=== PATIENT | female | born 1950 | race Caucasian/White ===

== ENCOUNTER 2016-12-26 16:52 | Emergency (ER) | payer MEDICARE, OTHER ==
[2016-12-26 17:57] VITALS: BP 106/62
--- NOTE | 2016-12-26 18:02 | ERPHSYRPT ---
- History of Present Illness Time Seen by Provider: 12/26/16 17:46 Source: patient, family Patient Subjective Stated Complaint: rt foot wound Triage Nursing Assessment: rt foot wound for several weeks. c and supa takes care of pt--pt was in radiology and then over to er. pt states she has neuropathy and unaware if she has stepped on anything. puncture wound/tunneling ulcer type area with no redness to pad of rt foot. clear yellow drainage noted. 2-3+ edema noted to rt lower leg. 1-2+ edema to lt lower leg. pt states she had a callus removed last week from the area in question. pain with ambulation. Physician History: CC: right foot pain Hx: 66 y/o patient of Dr Jones. She has hx of renal failure and DM. She went to the nails salon and had a callous removed from the right foot. She had a sore so went to Dr Jones last Wed. She had order for OP xray which she obtained today. It showed fractures so she was brought to the ER. She has pain in the foot with walking. She has been using her 's vicodin. No fracture , redness, or drng. No injury. Lower Extremities Pain: foot: right Allergies/Adverse Reactions: ceftriaxone sodium [From Rocephin] Allergy (Severe, Verified 12/26/16 17:48) Difficulty Swallowing chlorpheniramine polistirex [From Tussionex] Allergy (Mild, Verified 12/26/16 17 :48) Lightheadedness hydrocodone polistirex [From Tussionex] Allergy (Mild, Verified 12/26/16 17:48) Lightheadedness Cephalosporins Allergy (Unverified 12/26/16 17:48) chlorpheniramine Allergy (Verified 12/26/16 17:48) morphine Adverse Reaction (Intermediate, Verified 12/26/16 17:48) Home Medications: Bumetanide 4 mg PO UD 08/03/15 [History] Cinacalcet HCl [Sensipar] 30 mg PO DAILY 08/03/15 [History] Citalopram Hydrobromide [Celexa] 20 mg PO DAILY 08/03/15 [History] Insulin Glargine,Hum.rec.anlog [Gurpreet Vidal] 32 unit SQ HS 08/03/15 [History ] Insulin Lispro [Humalog Kwikpen] 10 unit SQ TID 08/03/15 [History] Ipratropium/Albuterol Sulfate [Iprat-Albut 0.5-3(2.5) mg/3 ml] 0 ml IH QID 08/03 [History] Lamotrigine 100 mg PO BID 08/03/15 [History] Methylphenidate HCl 10 mg PO QID 08/03/15 [History] Midodrine HCl 5 mg PO UD 08/03/15 [History] PANTOPRAZOLE 40 mg Tablet [Protonix 40MG Tablet] 40 mg PO DAILY 08/03/15 [ History] Pregabalin [Lyrica] 75 mg PO UD 08/03/15 [History] Promethazine HCl 25 mg PO DAILY PRN PRN 08/03/15 [History] Ranolazine 500 MG [Ranexa 500 MG] 500 mg PO BID 08/03/15 [History] Ropinirole HCl 1 mg PO HS 08/03/15 [History] Simvastatin 5 mg PO HS 08/03/15 [History] Zolpidem Tartrate [Ambien] 10 mg PO HS 08/03/15 [History] Aspirin 325 mg PO DAILY 09/19/15 [History] Ergocalciferol (Vitamin D2) [Vitamin D2] 50,000 unit PO Q7D 09/19/15 [History] Ferrous Sulfate 325 mg [Feosol 325 mg] 325 mg PO BID 09/19/15 [History] Glyburide 2.5 mg PO DAILY 09/19/15 [History] Hydrocodone Bit/Acetaminophen [[place] 5-325 Tablet] 1 each PO Q4HPRN PRN [History] [place]-3 Fatty Acids/Fish Oil [Fish Oil 1,000 mg Softgel] 1 each PO BID 09/19/15 [History] Sevelamer Carbonate [Renvela] 3,200 mg PO QID 09/19/15 [History] Hx Tetanus, Diphtheria Vaccination/Date Given: Yes Hx Influenza Vaccination/Date Given: Yes Hx Pneumococcal Vaccination/Date Given: Yes Immunizations Up to Date: Yes - Review of Systems Constitutional: No Fever, No Chills Musculoskeletal: Joint Pain (right foot), No Back Pain Skin: Skin Lesions (right plantar), No Cellulitis - Past Medical History Pertinent Past Medical History: Yes Neurological History: No Pertinent History ENT History: No Pertinent History Cardiac History: Myocardial Infarction ([place]) Respiratory History: CHF, COPD Endocrine Medical History: Diabetes Type II Musculoskeletal History: No Pertinent History GI Medical History: Other History: Dialysis, Renal Disease, Other Psycho-Social History: No Pertinent History Female Reproductive Disorders: No Pertinent History Other Medical History: COLOSTOMY, RENAL FAILURE,POLCYSTIC KIDNEY. blood transfusions. dialysis m,w,f - Past Surgical History Past Surgical History: Yes Neuro Surgical History: No Pertinent History Cardiac: Other Respiratory: No Pertinent History Gastrointestinal: Cholecystectomy, Other Musculoskeletal: No Pertinent History Female Surgical History: Hysterectomy Other Surgical History: COLOSTOMY,FISTULA - Social History Smoking Status: Never smoker How long have you smoked: 6 YEARS Exposure to second hand smoke: Yes Drug Use: none Patient Lives Alone: No - Female History Hx Now: No - Nursing Vital Signs Nursing Vital Signs: Initial Vital Signs Temperature 98.2 F Temperature Source Oral Pulse Rate 74 Respiratory Rate 16 Blood Pressure [] 106/62 Pain Intensity 0 - Physical Exam General Appearance: alert Eyes, Ears, Nose, Throat Exam: moist mucous membranes Neck Exam: supple Cardiovascular/Respiratory Exam: normal breath sounds, regular rate/rhythm Mental Status Exam: alert, oriented x 3, cooperative Skin Exam: warm, dry SpO2 Interpretation: normal SpO2: 100 Oxygen Delivery: Nasal Cannula Comments: right foot has neuropathic ulcer plantar 4-5 MT head area. Mild swelling. No redness. No drng. - Radiology Exams right foot X-ray Interpretation: Interpreted by me (3,4,5 partially displaced metatarsal fractures) Ordered Tests: Active Orders 24 hr Category Date Time Status Yoni Bandage Application -[facility] STAT Care 12/26/16 18:15 Active FOOT (MINIMUM 3 VIEWS) Routine Exams 12/26/16 Taken - Progress Progress Note: 12/26/16 18:[address] Jones. Will use bulky dressing, yoni wrap, and her own post op shoe. She has a walker. Will Rx norco for patient for pain. Counseled pt/family regarding: diagnosis, need for follow-up, rad results - Departure Time of Disposition: 18:16 Departure Disposition: Home Clinical Impression: right 3,45 metatarsal fractures Neuropathic foot ulcer Qualifiers: Laterality: right Non-pressure ulcer stage: limited to breakdown of skin Qualified Code(s): L97.511 - Non-pressure chronic ulcer of other part of right foot limited to breakdown of skin Condition: Stable Critical Care Time: No Referrals: WASHINGTON TRAYLOR [Primary Care Provider] - JO-ANN JONES [PODIATRY STAFF] - Instructions: Foot Fracture Additional Instructions: Elevate No weight bearing- use walker Use gauze dressing, yoni wrap, post op shoe. Call in AM to follow up with Dr Jones next week. Prescriptions: Hydrocodone Bit/Acetaminophen [[place] 5-325 Tablet] 1 each PO Q6H PRN PRN #20 tablet PRN Reason: Pain
[2016-12-26 18:31] VITALS: PULSE 78; O2SAT 97
--- NOTE | 2016-12-27 08:54 | XRAY ---
Indication: Puncture wound, distal first metatarsal. Comparison: None 3 nonweightbearing views of the right foot demonstrates diffuse osteopenia with mildly displaced fractures involving the distal third-fifth metatarsals and nondisplaced fracture of the proximal second metatarsal. The second/third metatarsal fractures demonstrates healing. Tiny heel spurs. Mild diffuse soft tissue swelling and faint vascular calcifications. Impression: Second-fifth metatarsal fractures as detailed. Osteopenia and heel spurs. Comment: Patient was taken to the ER for further evaluation.
== END 2016-12-26 18:31 | disposition home or self-care (01) ==
LOC: ED 16:52 → RAD 16:52 → EDSTATUS 17:30 → ED 18:31
DX: L97.511 Non-pressure chronic ulcer of other part of right foot limited to breakdown of skin (principal); S92.331A Displaced fracture of third metatarsal bone, right foot, initial encounter for closed fracture; S92.341A Displaced fracture of fourth metatarsal bone, right foot, initial encounter for closed fracture; S92.351G Displaced fracture of fifth metatarsal bone, right foot, subsequent encounter for fracture with delayed healing
CPT/HCPCS: 73630; 99283

== ENCOUNTER 2017-01-17 13:08 | Emergency (ER) | payer MEDICARE, OTHER ==
[2017-01-17 13:20] VITALS: O2SAT 98
--- NOTE | 2017-01-17 13:29 | ERPHSYRPT ---
- History of Present Illness Time Seen by Provider: 01/17/17 13:18 Historian: patient, EMS Exam Limitations: no limitations Physician History: The patient is a 66-year-old female brought in by ambulance from home with her complaining of a brief period of shortness of breath and chest tightness. She had just returned from dialysis when the shortness of breath occurred. Shortness of breath was quickly followed by chest tightness without any pain in her chest or in the extremities. The ambulance gave her 4 baby aspirin and a nitroglycerin. The chest tightness completely resolved by the time she arrived to the ER. Her past medical history is significant for diabetes, neuropathy, end-stage renal disease, chronic anemia with routine blood transfusions, congestive heart failure, and colon surgery resulting in a colostomy. The patient states that her hemoglobin 2 days ago was 7. Her hemoglobin has been as low as 5.5 in the recent past. Timing/Duration: today, resolved prior to arrival Activities at Onset: rest Quality: tightness Location: central Chest Pain Radiation: no radiation Severity of Pain-Max: moderate Severity of Pain-Current: none Modifying Factors: Improves With: nitroglycerin, aspirin Associated Symptoms: denies symptoms Prior Chest Pain/Cardiac Workup: cardiac cath Nitro Today/Relief: 0.4 mg x 1, provided by EMS, complete relief Aspirin Treatment Today: 81 mg x 4, provided by EMS Allergies/Adverse Reactions: ceftriaxone sodium [From Rocephin] Allergy (Severe, Verified 01/17/17 13:20) Difficulty Swallowing chlorpheniramine polistirex [From Tussionex] Allergy (Mild, Verified 01/17/17 13 :20) Lightheadedness hydrocodone polistirex [From Tussionex] Allergy (Mild, Verified 01/17/17 13:20) Lightheadedness Cephalosporins Allergy (Unverified 01/17/17 13:20) chlorpheniramine Allergy (Verified 01/17/17 13:20) morphine Adverse Reaction (Intermediate, Verified 01/17/17 13:20) Home Medications: Cinacalcet HCl [Sensipar] 30 mg PO DAILY 08/03/15 [History] Citalopram Hydrobromide [Celexa] 20 mg PO DAILY 08/03/15 [History] Insulin Glargine,Hum.rec.anlog [Toujeo Solostar] 16 unit SQ HS 08/03/15 [History ] Insulin Lispro [Humalog Kwikpen] 7 unit SQ TID 08/03/15 [History] Ipratropium/Albuterol Sulfate [Iprat-Albut 0.5-3(2.5) mg/3 ml] 0 ml IH QID 08/03 [History] Lamotrigine 100 mg PO BID 08/03/15 [History] Methylphenidate HCl 10 mg PO DAILY 08/03/15 [History] Midodrine HCl 5 mg PO UD 08/03/15 [History] PANTOPRAZOLE 40 mg Tablet [Protonix 40MG Tablet] 40 mg PO DAILY 08/03/15 [ History] Promethazine HCl 25 mg PO DAILY PRN PRN 08/03/15 [History] Ranolazine 500 MG [Ranexa 500 MG] 500 mg PO BID 08/03/15 [History] Ropinirole HCl 1 mg PO HS 08/03/15 [History] Simvastatin 5 mg PO HS 08/03/15 [History] Zolpidem Tartrate [Ambien] 10 mg PO HS 08/03/15 [History] Aspirin 81 mg PO DAILY 09/19/15 [History] Ergocalciferol (Vitamin D2) [Vitamin D2] 50,000 unit PO Q7D 09/19/15 [History] Ferrous Sulfate 325 mg [Feosol 325 mg] 325 mg PO BID 09/19/15 [History] [place]-3 Fatty Acids/Fish Oil [Fish Oil 1,000 mg Softgel] 1 each PO BID 09/19/15 [History] Sevelamer Carbonate [Renvela] 3,200 mg PO QID 09/19/15 [History] Folic Acid 1 mg PO DAILY 01/17/17 [History] Gabapentin 300 mg PO HS 01/17/17 [History] Sucralfate 1 gm [Carafate 1 GM] 1 gm PO QID 01/17/17 [History] Hx Tetanus, Diphtheria Vaccination/Date Given: Yes Hx Influenza Vaccination/Date Given: Yes Hx Pneumococcal Vaccination/Date Given: Yes - Review of Systems Constitutional: No Fever, No Chills Eyes: No Symptoms Ears, Nose, & Throat: No Symptoms Respiratory: Dyspnea, Dyspnea on Exertion ([place]AK), No Cough Cardiac: Chest Pain (tightness) Abdominal/Gastrointestinal: No Abdominal Pain, No Nausea, No Vomiting, No Diarrhea Genitourinary Symptoms: No Dysuria Musculoskeletal: No Back Pain, No Neck Pain Skin: No Rash Neurological: No Dizziness, No Focal Weakness, No Sensory Changes Psychological: No Symptoms Endocrine: No Symptoms Hematologic/Lymphatic: No Symptoms Immunological/Allergic: No Symptoms All Other Systems: Reviewed and Negative - Past Medical History Pertinent Past Medical History: Yes Neurological History: No Pertinent History ENT History: No Pertinent History Cardiac History: Myocardial Infarction ([place]) Respiratory History: CHF, COPD Endocrine Medical History: Diabetes Type II Musculoskeletal History: No Pertinent History GI Medical History: Other History: Dialysis, Renal Disease, Other Psycho-Social History: No Pertinent History Female Reproductive Disorders: No Pertinent History Other Medical History: COLOSTOMY, RENAL FAILURE,POLCYSTIC KIDNEY. blood transfusions. dialysis m,w,f - Past Surgical History Past Surgical History: Yes Neuro Surgical History: No Pertinent History Cardiac: Other Respiratory: No Pertinent History Gastrointestinal: Cholecystectomy, Other Musculoskeletal: No Pertinent History Female Surgical History: Hysterectomy Other Surgical History: COLOSTOMY,FISTULA - Social History Smoking Status: Never smoker How long have you smoked: 6 YEARS Exposure to second hand smoke: Yes Drug Use: none Patient Lives Alone: No - Female History Hx Now: No - Nursing Vital Signs Nursing Vital Signs: Initial Vital Signs Temperature 98.2 F Temperature Source Oral Pulse Rate [] 90 Pulse Rate 84 Respiratory Rate 20 Blood Pressure [] 167/72 Pain Intensity 0 - Physical Exam General Appearance: no apparent distress, alert Eye Exam: PERRL/EOMI, eyes nml inspection Ears, Nose, Throat Exam: normal ENT inspection, moist mucous membranes Neck Exam: normal inspection, non-tender, supple, full range of motion Respiratory Exam: normal breath sounds, lungs clear, No respiratory distress Cardiovascular Exam: regular rate/rhythm, normal heart sounds Gastrointestinal/Abdomen Exam: soft, No tenderness, No mass Pelvic Exam: not done Rectal Exam: not done Back Exam: normal inspection, No CVA tenderness, No vertebral tenderness Extremity Exam: normal inspection, normal range of motion Neurologic Exam: alert, oriented x 3, cooperative, normal mood/affect, sensation nml, No motor deficits Skin Exam: normal color, warm, dry SpO2 Interpretation: normal - Course EKG Interpreted by Me: RATE, Sinus Rhythm, NORMAL AXIS, NORMAL INTERVALS, NORMAL QRS, NORMAL ST-T, Other (no change compared to EKG 12/04/15.) - Radiology Exams Chest X-ray Interpretation: Teleradiologist Report, Other (cardiomegaly, vascular prominence, pulmonary edema and tiny bilateral effusions per DR Hilario.) Ordered Tests: Active Orders 24 hr Category Date Time Status Inserting Machine Operator STAT Care 01/17/17 13:45 Active EKG-ER Only STAT Care 01/17/17 13:35 Active IV Insertion STAT Care 01/17/17 13:45 Active Oxygen-ED Only NASAL CANNULA 3 lpm Care 01/17/17 13:45 Active CHEST 2 VIEWS (PA AND LAT) Stat Exams 01/17/17 13:35 Completed CBC W DIFF Stat Lab 01/17/17 13:50 Completed CMP Stat Lab 01/17/17 13:50 Completed Manual Differential NC Stat Lab 01/17/17 13:50 Completed TROPONIN Stat Lab 01/17/17 13:50 Completed Medication Summary Discontinued Medications Generic Name Dose Route Start Last Admin Trade Name Earleq PRN Reason Stop Dose Admin Potassium Chloride 40 meq 01/17/17 14:31 01/17/17 14:49 Klor Con 10 Meq PO 01/17/17 14:32 40 meq STAT ONE Administration Potassium Chloride Confirm 01/17/17 14:49 Klor Con 10 Meq Administered 01/17/17 14:50 Dose 40 meq PO .STK-MED ONE Lab/Rad Data: Laboratory Result Diagrams 01/17/17 13:50 01/17/17 13:50 Laboratory Results 01/17/17 01/17/17 Range/Units 13:50 13:50 WBC 6.1 (4.0-10.5) K/mm3 RBC 2.29 L (4.1-5.4) M/mm3 Hgb 6.4 L* (12.0-16.0) gm/dl Hct 22.1 L (35-47) % MCV 96.5 (78-100) fl MCH 27.9 (26-32) pg MCHC 29.0 L (32-36) g/dl RDW 17.9 H (11.5-14.0) % Plt Count 144 L (150-450) K/mm3 MPV 12.2 H (6-9.5) fl Segmented Neutrophils 79 H (36.0-66.0) % Band Neutrophils 1 (0.0-2.0) % Lymphocytes (Manual) 6 L (24-44) % Monocytes (Manual) 11 (0.0-12.0) % Eosinophils (Manual) 1 (0.00-3.0) % Basophils (Manual) 1 (0.0-1.0) % Myelocytes 1 % Differential Comment ABNORMAL Platelet Estimate DECREASED (NORMAL) Polychromasia 1+ Hypochromasia 2+ Poikilocytosis 1+ Anisocytosis 2+ Macrocytosis 1+ Sodium 138 (136-145) mEq/L Potassium 3.0 L* (3.5-5.1) mEq/L Chloride 100 (98-107) mEq/L Carbon Dioxide 30.6 (21-32) mEq/L Anion Gap 10.9 (5-15) MEQ/L BUN 13 (9-20) mg/dL Creatinine 2.72 H (0.55-1.30) mg/dl Estimated GFR 18 ML/MIN Glucose 296 H (70-110) MG/DL Calcium 8.5 (8.5-10.1) mg/dL Total Bilirubin 0.30 (0.2-1.0) mg/dL AST 24 (15-37) U/L ALT 22 (12-78) U/L Alkaline Phosphatase 238 H (46-116) U/L Troponin I 0.028 (0.000-0.056) ng/ml Serum Total Protein 6.2 L (6.4-8.2) gm/dL Albumin 2.6 L (3.4-5.0) g/dL - Progress Progress: unchanged Air Movement: good Progress Note: 01/17/17 15:01 I spoke with her primary care doctor, Dr. Do, about the patient's hemoglobin level and her potassium level. He knows of her chronic anemia and recommended that she be given potassium and then sent home. He suggested that I contact her casting and curing operator, Dr. Burnette, about the patient. Her casting and curing operator takes care of arranging transfusions and should do so on Friday after she has dialysis. Dr. Burnette has been called the as if this time has not responded. 01/17/17 15:45 I spoke with doctor Burnette's PA, Estuardo, about the patient. The PA knows the patient well and agrees to see the patient on Friday after dialysis for possible transfusion for anemia. Blood Culture(s) Obtained: No Antibiotics given: No Counseled pt/family regarding: lab results, diagnosis, need for follow-up - Departure Time of Disposition: 15:48 Departure Disposition: Home Clinical Impression: Anemia, Hypokalemia Condition: Stable Critical Care Time: No Additional Instructions: You have anemia. I spoke with your casting and curing operator's PA who will see you Friday after dialysis and evaluate you for a likely blood transfusion for anemia.You also had low potassium and was given 40 mEq of potassium in the ER.
[2017-01-17 13:54] LABS: Mean Cell Volume 96.5 fl (78-100); Mean Corpuscular Hemoglobin 27.9 pg (26-32); Mean Platelet Volume 12.2 fl (6-9.5); Platelet Count 144 K/mm3 (150-450); Red Blood Count 2.29 M/mm3 (4.1-5.4); Red Cell Distribution Width 17.9 % (11.5-14.0); White Blood Count 6.1 K/mm3 (4.0-10.5)
[2017-01-17 14:07] LABS: BAND 1 % (0.0-2.0); Basophil 1 % (0.0-1.0); Eosinophil 1 % (0.00-3.0); Myelocyte 1 %; Total Cells Counted 100
[2017-01-17 14:09] LABS: ANISOCYTOSIS 2+; Hypochromia 2+; Platelet Estimate DECREASED (NORMAL); Polychromasia 1+
[2017-01-17 14:10] LABS: Macrocytosis 1+; Poikilocytosis 1+
--- NOTE | 2017-01-17 14:12 | XRAY ---
Indication: Short of breath. Chest tightness. Comparison: September 19, 2015. AP/lateral chest slightly underinflated again with cardiomegaly, vascular prominence, pulmonary edema, and tiny bibasilar effusions favoring cardiac decompensation. Superimposed pneumonia not completely excluded. New right Port-A-Cath without complications.
[2017-01-17 14:24] LABS: ALBUMIN 2.6 g/dL (3.4-5.0); ANION GAP 10.9 MEQ/L (5-15); BILIRUBIN,TOTAL 0.3 mg/dL (0.2-1.0); Carbon Dioxide 30.6 mEq/L (21-32); TROPONIN 0.028 ng/ml (0.000-0.056); Total Protein 6.2 gm/dL (6.4-8.2)
[2017-01-17] MEDS ORDERED: Klor Con 10 MEQ PO ONE ×2 (14:31→14:49)
[2017-01-17 16:10] VITALS: BP 132/87; PULSE 82
== END 2017-01-17 16:20 | disposition home or self-care (01) ==
LOC: ED 13:08
DX: D64.9 Anemia, unspecified (principal); E87.6 Hypokalemia; R06.02 Shortness of breath; R07.89 Other chest pain; Z99.2 Dependence on renal dialysis; I25.2 Old myocardial infarction; I50.9 Heart failure, unspecified; J44.9 Chronic obstructive pulmonary disease, unspecified; E11.9 Type 2 diabetes mellitus without complications; N28.9 Disorder of kidney and ureter, unspecified; Z79.899 Other long term (current) drug therapy
CPT/HCPCS: 36000; 36415; 36591; 71020; 80053; 84484; 85025; 93005; 93041; 99284; J1642; A9270-GY

== ENCOUNTER 2017-02-13 14:15 | Emergency (ER) | payer MEDICARE, OTHER ==
--- NOTE | 2017-02-13 15:38 | XRAY ---
Indication: Right facial injury following fall. Multiple contiguous axial images obtained through the facial bones. Sagittal and coronal reformatted images obtained. Comparison: None A few bilateral lower dental amalgams produces beam artifact. Minimal right maxilla soft tissue swelling. No acute fracture, suspicious bony lesions, or radiopaque foreign body. Orbits including roof, ochoa, and floors intact. There is nonexpansile complete opacification of the right maxillary sinus. Minimal mucosal thickening seen in the floor the left maxillary sinus. Remaining paranasal sinuses and mastoid air cells are clear. Minimal nasal septal deviation to the left. Visualized noncontrasted soft tissues including base of the brain unremarkable. There is scattered heavy vascular calcifications bilaterally. Visualized cervical spine intact. Impression: 1. Minimal right axilla soft tissue swelling. No underlying acute fracture or radiopaque foreign body. 2. Paranasal sinus disease with complete opacification of the right maxillary sinus. 3. Extensive arteriosclerotic calcifications. CT DI 59.47
--- NOTE | 2017-02-13 15:44 | XRAY ---
Indication: Pain following fall. Comparison: None 2 views of the left humerus demonstrates osteopenia, tiny olecranon process spur, and 3 cm partially calcified round soft tissue mass medial to the elbow. No other bony, articular, or soft tissue abnormalities. Impression: Nonacute left humerus with chronic features
--- NOTE | 2017-02-13 15:46 | XRAY ---
Indication: Pain following fall. Comparison: None 2 views of the left clavicle demonstrates osteopenia and mild AC degenerative arthropathy. No acute fracture, dislocation, or suspicious bony lesions. Visualized lung demonstrates interstitial alveolar opacity similar appearance to January 17, 2017 chest exam.
--- NOTE | 2017-02-13 16:01 | ERPHSYRPT ---
- History of Present Illness Time Seen by Provider: 02/13/17 15:30 Source: patient (2021) Exam Limitations: clinical condition Patient Subjective Stated Complaint: fell this am against her bed. having pain to left upper arm. denies any other injury. dialysis shunt left upper arm. Triage Nursing Assessment: to room per w/c, skin sallow, w/d. tender left upper arm. no deformity noted. has shunt to left upper arm. Physician History: PATIENT WITH A HISTORY OF CHRONIC RENAL FAILURE, HEMODIALYSIS, FELL ONTO FURNITURE SUSTAINED INJURY TO RIGHT SIDE OF FACE, HAS LEFT UPPER ARM PAIN. DENIES LOSS OF CONSCIOUSNESS, NECK OR BACK PAIN. Occurred: just prior to arrival Reason for Fall: tripped Injuries/Pain Location: face, upper extremity Loss of Consciousness: no loss of consciousness Quality: aching Severity of Pain-Max: mild Severity of Pain-Current: mild Modifying Factors: Improves With: movement Allergies/Adverse Reactions: ceftriaxone sodium [From Rocephin] Allergy (Severe, Verified 02/13/17 15:14) Difficulty Swallowing chlorpheniramine polistirex [From Tussionex] Allergy (Mild, Verified 02/13/17 15 :14) Lightheadedness hydrocodone polistirex [From Tussionex] Allergy (Mild, Verified 02/13/17 15:14) Lightheadedness Cephalosporins Allergy (Verified 02/13/17 15:14) chlorpheniramine Allergy (Verified 02/13/17 15:14) morphine Adverse Reaction (Intermediate, Verified 02/13/17 15:14) Home Medications: Cinacalcet HCl [Sensipar] 30 mg PO DAILY 08/03/15 [History] Citalopram Hydrobromide [Celexa] 20 mg PO DAILY 08/03/15 [History] Insulin Glargine,Hum.rec.anlog [Toujim Vidal] 16 unit SQ HS 08/03/15 [History ] Insulin Lispro [Humalog Kwikpen] 7 unit SQ TID 08/03/15 [History] Ipratropium/Albuterol Sulfate [Iprat-Albut 0.5-3(2.5) mg/3 ml] 0 ml IH QID 08/03 [History] Lamotrigine 100 mg PO BID 08/03/15 [History] Methylphenidate HCl 10 mg PO DAILY 08/03/15 [History] Midodrine HCl 5 mg PO UD 08/03/15 [History] PANTOPRAZOLE 40 mg Tablet [Protonix 40MG Tablet] 40 mg PO DAILY 08/03/15 [ History] Promethazine HCl 25 mg PO DAILY PRN PRN 08/03/15 [History] Ranolazine 500 MG [Ranexa 500 MG] 500 mg PO BID 08/03/15 [History] Ropinirole HCl 1 mg PO HS 08/03/15 [History] Simvastatin 5 mg PO HS 08/03/15 [History] Zolpidem Tartrate [Ambien] 10 mg PO HS 08/03/15 [History] Aspirin 81 mg PO DAILY 09/19/15 [History] Ergocalciferol (Vitamin D2) [Vitamin D2] 50,000 unit PO Q7D 09/19/15 [History] Ferrous Sulfate 325 mg [Feosol 325 mg] 325 mg PO BID 09/19/15 [History] [place]-3 Fatty Acids/Fish Oil [Fish Oil 1,000 mg Softgel] 1 each PO BID 09/19/15 [History] Sevelamer Carbonate [Renvela] 3,200 mg PO QID 09/19/15 [History] Folic Acid 1 mg PO DAILY 01/17/17 [History] Gabapentin 300 mg PO HS 01/17/17 [History] Sucralfate 1 gm [Carafate 1 GM] 1 gm PO QID 01/17/17 [History] Hx Tetanus, Diphtheria Vaccination/Date Given: Yes Hx Influenza Vaccination/Date Given: Yes Hx Pneumococcal Vaccination/Date Given: Yes - Review of Systems Constitutional: No Fever, No Chills Eyes: Other (FACIAL PAIN) Ears, Nose, & Throat: No Symptoms Respiratory: No Symptoms, No Cough, No Dyspnea Cardiac: No Chest Pain, No Edema, No Syncope Abdominal/Gastrointestinal: No Abdominal Pain, No Nausea, No Vomiting, No Diarrhea Genitourinary Symptoms: No Dysuria Musculoskeletal: Injury, Joint Pain, Joint Swelling, No Back Pain, No Neck Pain Skin: No Rash Neurological: No Dizziness, No Focal Weakness, No Sensory Changes Psychological: No Symptoms Endocrine: No Symptoms All Other Systems: Reviewed and Negative - Past Medical History Pertinent Past Medical History: Yes Neurological History: No Pertinent History ENT History: No Pertinent History Cardiac History: Myocardial Infarction ([place]) Respiratory History: CHF, COPD Endocrine Medical History: Diabetes Type II Musculoskeletal History: No Pertinent History GI Medical History: Other History: Dialysis, Renal Disease, Other Psycho-Social History: No Pertinent History Female Reproductive Disorders: No Pertinent History Other Medical History: COLOSTOMY, RENAL FAILURE,POLCYSTIC KIDNEY. blood transfusions. dialysis m,w,f - Past Surgical History Past Surgical History: Yes Neuro Surgical History: No Pertinent History Cardiac: Other Respiratory: No Pertinent History Gastrointestinal: Cholecystectomy, Other Musculoskeletal: No Pertinent History Female Surgical History: Hysterectomy Other Surgical History: COLOSTOMY,FISTULA - Social History Smoking Status: Former smoker How long have you smoked: 6 YEARS Exposure to second hand smoke: No Drug Use: none Patient Lives Alone: No - Female History Hx Now: No - Nursing Vital Signs Nursing Vital Signs: Initial Vital Signs Temperature 97.7 F Temperature Source Oral Pulse Rate 107 Respiratory Rate 20 Blood Pressure [Right Arm] 109/70 Pain Intensity 7 - [place] Coma Score Best Eye Response ([place]): (4) open spontaneously Best Verbal Response ([place]): (5) oriented Best Motor Response ([place]): (6) obeys commands [place] Total: 15 - Physical Exam General Appearance: no apparent distress, alert Head Injury: no evidence of injury Eye Exam: PERRL/EOMI, other (TENDERNESS RIGHT ZYGOMATIC ARCH, NO ECCHYMOSIS OR CREPITUS) ENT Exam: airway nml Neck Exam: supple, normal inspection, other (NONTENDER), No tenderness Respiratory/Chest Exam: normal breath sounds, No chest tenderness, No respiratory distress Cardiovascular Exam: normal heart sounds, regular rate/rhythm Gastrointestinal Exam: soft, No tenderness, No distention, No guarding, No ecchymosis Back Exam: normal inspection, No vertebral tenderness Extremity Exam: normal inspection, normal range of motion, pelvis stable, No deformities Peripheral Pulses: carotid (R): 2+, carotid (L): 2+, femoral (R): 2+, femoral (L ): 2+, dorsalis-pedis (R): 2+, dorsalis-pedis (L): 2+ Neurologic Exam: alert, oriented x 3, cooperative, sensation nml, No motor deficits Skin Exam: normal color, warm, dry SpO2 Interpretation: normal SpO2: 100 Oxygen Delivery: Nasal Cannula - Radiology Exams Left Humerus X-ray Interpretation: Negative, No Fracture (NO DISLOCATION) Left Clavicle X-ray Interpretation: Discussed w/ radiologist, Negative, No Fracture - CT Exams Maxillofacial Bones CT Interpretation: Discussed w/radiologist, Tele-radiologist Report (NO FACIAL FRACTURE, COMPLETE OPACIFICATION OF RIGTH MAXILLARY SINUS) Ordered Tests: Active Orders 24 hr Category Date Time Status CLAVICLE Stat Exams 02/13/17 15:01 Completed FACIAL BONES WO CONTRAST [CT] Stat Exams 02/13/17 14:59 Completed HUMERUS Stat Exams 02/13/17 15:01 Completed - Progress Counseled pt/family regarding: diagnosis, need for follow-up, rad results - Departure Time of Disposition: 16:10 Departure Disposition: Home Clinical Impression: FACIAL/LEFT SHOULDER CONTUSION, RIGHT MAXILLARY SINUSITIS Condition: Stable Critical Care Time: No Additional Instructions: CONTINUE ALL CURRENT MEDICATIONS. ANTIBIOTIC AUGMENTIN 875MG TWICE DAILY FOR 10 DAYS. WEAR ARM SLING FOR COMFORT FOR 1 WEEK. CONTINUE ALL CURRENT MEDICATIONS. APPLY ICE OVER LEFT SHOULDER SWELLING EVERY 4 HOURS, 30 MINUTES FOR 48 HOURS. Prescriptions: Amox Tr/Potass Clav. 875 mg [Augmentin 875-125 Tablet] 875 mg PO BID #20 tablet
[2017-02-13 16:24] VITALS: BP 113/34; PULSE 84; O2SAT 89
== END 2017-02-13 16:44 | disposition home or self-care (01) ==
LOC: ED 14:15
DX: S00.83XA Contusion of other part of head, initial encounter (principal); S40.012A Contusion of left shoulder, initial encounter; J32.0 Chronic maxillary sinusitis; W01.190A Fall on same level from slipping, tripping and stumbling with subsequent striking against furniture, initial encounter; Z79.4 Long term (current) use of insulin; Z79.899 Other long term (current) drug therapy; I25.2 Old myocardial infarction; I50.9 Heart failure, unspecified; J44.9 Chronic obstructive pulmonary disease, unspecified; E11.9 Type 2 diabetes mellitus without complications
CPT/HCPCS: 70486; 73000; 73060; 99283

== ENCOUNTER 2017-02-25 21:07 | Emergency (ER) | payer MEDICARE, OTHER ==
[2017-02-25] MEDS ORDERED: Merrem 1 GM 1 G in Sodium Chloride 100ML MINI-BAG PLUS 100 ML IV STA (21:14)
[2017-02-25] MEDS ORDERED: Merrem 1 GM IV ONE (21:25)
[2017-02-25] MEDS ORDERED: Sodium Chloride 0.9% 100 ML IVPB 100 ML IV ONE (21:26)
[2017-02-25 21:30] LABS: A-aADO2 243; ARTERIAL BLD GAS O2 SATURATION 98.5 % (95-100); ARTERIAL BLOOD GAS BASE EXCESS 1.9 (-2.0-2.0); ARTERIAL BLOOD GAS FIO2 50 %; ARTERIAL BLOOD GAS PO2 76 mmHg (75-100); ARTERIAL BLOOD GAS pH 7.52 (7.35-7.45)
[2017-02-25 21:31] LABS: ALLEN TEST OK? YES
[2017-02-25 21:32] LABS: Lactic Acid 2.3 (0.4-2.0)
--- NOTE | 2017-02-25 21:34 | ERPHSYRPT ---
- History of Present Illness Time Seen by Provider: 02/25/17 21:12 Source: patient, family () Patient Subjective Stated Complaint: pt has been co sickness all day fever per home health nurs -tylenol given at 1900 chilling Triage Nursing Assessment: pt is awake and alert co rigors color is dusky and she is shaking all over Physician History: CC: chills Hx: 66 y/o patient of Dr Burnette/Dimitri Do. She has chronic renal failure on hemodialysis due for dialysis tomorrow. She has had chills most of the day. She had fever. Some nausea and took a nausea pill. A little belly ache but no eugenia pain. No V/D. No chest pain. gave APAP at 7PM and brought her to ER. No rash. Timing/Duration: today Severity: severe Allergies/Adverse Reactions: ceftriaxone sodium [From Rocephin] Allergy (Severe, Verified 02/25/17 21:22) Difficulty Swallowing chlorpheniramine polistirex [From Tussionex] Allergy (Mild, Verified 02/25/17 21 :22) Lightheadedness hydrocodone polistirex [From Tussionex] Allergy (Mild, Verified 02/25/17 21:22) Lightheadedness Cephalosporins Allergy (Verified 02/25/17 21:22) chlorpheniramine Allergy (Verified 02/25/17 21:22) morphine Adverse Reaction (Intermediate, Verified 02/25/17 21:22) Home Medications: Cinacalcet HCl [Sensipar] 30 mg PO DAILY 08/03/15 [History] Citalopram Hydrobromide [Celexa] 20 mg PO DAILY 08/03/15 [History] Insulin Glargine,Hum.rec.anlog [Gurpreet Vidal] 16 unit SQ HS 08/03/15 [History ] Insulin Lispro [Humalog Kwikpen] 7 unit SQ TID 08/03/15 [History] Ipratropium/Albuterol Sulfate [Iprat-Albut 0.5-3(2.5) mg/3 ml] 0 ml IH QID 08/03 [History] Lamotrigine 100 mg PO BID 08/03/15 [History] Methylphenidate HCl 10 mg PO DAILY 08/03/15 [History] Midodrine HCl 5 mg PO UD 08/03/15 [History] PANTOPRAZOLE 40 mg Tablet [Protonix 40MG Tablet] 40 mg PO DAILY 08/03/15 [ History] Promethazine HCl 25 mg PO DAILY PRN PRN 08/03/15 [History] Ranolazine 500 MG [Ranexa 500 MG] 500 mg PO BID 08/03/15 [History] Ropinirole HCl 1 mg PO HS 08/03/15 [History] Simvastatin 5 mg PO HS 08/03/15 [History] Zolpidem Tartrate [Ambien] 10 mg PO HS 08/03/15 [History] Aspirin 81 mg PO DAILY 09/19/15 [History] Ergocalciferol (Vitamin D2) [Vitamin D2] 50,000 unit PO Q7D 09/19/15 [History] Ferrous Sulfate 325 mg [Feosol 325 mg] 325 mg PO BID 09/19/15 [History] [place]-3 Fatty Acids/Fish Oil [Fish Oil 1,000 mg Softgel] 1 each PO BID 09/19/15 [History] Sevelamer Carbonate [Renvela] 3,200 mg PO QID 09/19/15 [History] Folic Acid 1 mg PO DAILY 01/17/17 [History] Gabapentin 300 mg PO HS 01/17/17 [History] Sucralfate 1 gm [Carafate 1 GM] 1 gm PO QID 01/17/17 [History] Hx Tetanus, Diphtheria Vaccination/Date Given: Yes Hx Influenza Vaccination/Date Given: Yes Hx Pneumococcal Vaccination/Date Given: Yes - Review of Systems Constitutional: Fever, Chills, Fatigue, Malaise, Weakness Eyes: No Symptoms Ears, Nose, & Throat: No Symptoms Respiratory: Dyspnea, No Cough Cardiac: No Chest Pain Abdominal/Gastrointestinal: Nausea, No Abdominal Pain, No Vomiting, No Diarrhea Genitourinary Symptoms: No Dysuria Skin: No Rash Neurological: No Headache All Other Systems: Reviewed and Negative - Past Medical History Pertinent Past Medical History: Yes Neurological History: No Pertinent History ENT History: No Pertinent History Cardiac History: Myocardial Infarction ([place]) Respiratory History: CHF, COPD Endocrine Medical History: Diabetes Type II Musculoskeletal History: No Pertinent History GI Medical History: Other History: Dialysis, Renal Disease, Other Psycho-Social History: No Pertinent History Female Reproductive Disorders: No Pertinent History Other Medical History: COLOSTOMY, RENAL FAILURE,POLCYSTIC Kidney Disease. blood transfusions. dialysis m,w,f - Past Surgical History Past Surgical History: Yes Neuro Surgical History: No Pertinent History Cardiac: Other Respiratory: No Pertinent History Gastrointestinal: Cholecystectomy, Other Musculoskeletal: No Pertinent History Female Surgical History: Hysterectomy Other Surgical History: COLOSTOMY,FISTULA - Social History Smoking Status: Former smoker How long have you smoked: 6 YEARS Exposure to second hand smoke: No Drug Use: none Patient Lives Alone: No (here with ) - Female History Hx Last Menstrual Period: na Hx Now: No - Nursing Vital Signs Nursing Vital Signs: Initial Vital Signs Temperature 103.5 F 02/25/17 21:14 Pulse Rate 84 02/25/17 21:14 Respiratory Rate 24 02/25/17 21:14 Blood Pressure 168/80 02/25/17 21:14 O2 Sat by Pulse Oximetry 84 L 02/25/17 21:14 Pain Scale Pain Intensity 2 - Physical Exam General Appearance: alert, other (anxious and short of breath on arrival) Eye Exam: PERRL/EOMI Ears, Nose, Throat Exam: dry mucous membranes Neck Exam: normal inspection, supple Respiratory Exam: crackles/rales Cardiovascular Exam: regular rate/rhythm Gastrointestinal/Abdomen Exam: soft, No tenderness, No distention, No mass, No guarding Extremity Exam: pedal edema (trace) Neurologic Exam: alert, oriented x 3, cooperative, sensation nml, No motor deficits Skin Exam: warm, dry SpO2 Interpretation: hypoxic, ABG ordered, O2 applied SpO2: 84 Oxygen Delivery: Nasal Cannula - Course Nursing assessment & vital signs reviewed: Yes EKG Interpreted by Me: RATE (90), Sinus Rhythm, NORMAL AXIS, NORMAL INTERVALS ( QTc 459), NORMAL ST-T (anterior ST depressions, no current of injury) - Radiology Exams cxr X-ray Interpretation: Reviewed by me (bilateral diffuse infiltrates) Ordered Tests: Active Orders 24 hr Category Date Time Status Stem Shaper STAT Care 02/25/17 21:13 Active EKG-ER Only STAT Care 02/25/17 21:13 Active IV Insertion STAT Care 02/25/17 21:14 Active Oxygen-ED Only VENTI-MASK 50% Care 02/25/17 21:14 Active Pulse Oximetry (ED) STAT Care 02/25/17 21:13 Active Rectal Temperature STAT Care 02/25/17 21:14 Active Saline Lock STAT Care 02/25/17 21:13 Active cath [Cath for Specimen-Straight] STAT Care 02/25/17 22:09 Active CHEST 1 VIEW (PORTABLE) Stat Exams 02/25/17 21:13 Taken ARTERIAL BLOOD GASES Stat Lab 02/25/17 21:23 Completed BLOOD CULTURE Stat Lab 02/25/17 21:25 Received CBC W DIFF Stat Lab 02/25/17 21:20 Completed CMP Stat Lab 02/25/17 21:20 Completed CULTURE,URINE Stat Lab 02/25/17 21:13 Ordered Lactic Acid Stat Lab 02/25/17 21:23 Results Manual Differential NC Stat Lab 02/25/17 21:20 Completed PROTIME WITH INR Stat Lab 02/25/17 21:20 Completed PTT Stat Lab 02/25/17 21:20 Completed STREP SCREEN-BETA A Stat Lab 02/25/17 22:20 Received TROPONIN Q3H Lab 02/25/17 21:45 Completed TROPONIN Q3H Lab 02/26/17 00:45 Ordered TROPONIN Q3H Lab 02/26/17 03:45 Ordered TROPONIN Q3H Lab 02/26/17 06:45 Ordered TROPONIN Q3H Lab 02/26/17 09:45 Ordered UA W/ MICROSCOPIC Stat Lab 02/25/17 22:00 Completed Medication Summary Generic Name Dose Route Start Last Admin Trade Name Freq PRN Reason Stop Dose Admin Sodium Chloride 1,000 mls @ 50 mls/hr 02/25/17 21:45 02/25/17 22:05 Sodium Chloride 0.9% 1000 Ml IV 03/27/17 21:44 50 mls/hr .Q20H NOEMÍ Administration Discontinued Medications Generic Name Dose Route Start Last Admin Trade Name Freq PRN Reason Stop Dose Admin Meropenem 1 g/ Sodium Chloride 100 mls @ 200 mls/hr 02/25/17 21:14 02/25/17 21:41 IV 02/25/17 21:43 200 mls/hr STAT STA Administration Sodium Chloride Confirm 02/25/17 21:26 Sodium Chloride 0.9% 100 Ml Ivpb Administered 02/25/17 21:27 Dose 100 mls @ ud IV .STK-MED ONE Meropenem Confirm 02/25/17 21:25 Merrem 1 Gm Administered 02/25/17 21:26 Dose 1 g IV .STK-MED ONE Lab/Rad Data: Laboratory Result Diagrams 02/25/17 21:20 02/25/17 21:20 Laboratory Results 02/25/17 02/25/17 02/25/17 Range/Units 22:00 21:45 21:23 WBC (4.0-10.5) K/mm3 RBC (4.1-5.4) M/mm3 Hgb (12.0-16.0) gm/dl Hct (35-47) % MCV (78-100) fl MCH (26-32) pg MCHC (32-36) g/dl RDW (11.5-14.0) % Plt Count (150-450) K/mm3 MPV (6-9.5) fl INR (0.8-3.0) APTT (25.3-37.0) SECONDS Puncture Site RIGHT RADIAL pCO2 30 L (35-45) mmHg pO2 76 (75-100) mmHg Base Excess 1.9 (-2.0-2.0) O2 Saturation 93.5 L (94-100) g/dF ABG pH 7.52 H (7.35-7.45) ABG HCO3 24.5 (22-28) ABG O2 Sat (Measured) 98.5 (95-100) % Emil Test YES A-a Gradient 243 a/A Ratio 0.24 Hemoglobin 9.3 Carboxyhemoglobin 3.8 (0.0-6.9) % THgb Methemoglobin 1.3 L (1.4-1.5) % Temperature 37.0 C POC O2 Flow Rate 50 % Sodium (136-145) mEq/L Potassium 4.6 (3.5-5.1) mEq/L Chloride (98-107) mEq/L Carbon Dioxide (21-32) mEq/L Anion Gap (5-15) MEQ/L BUN (9-20) mg/dL Creatinine (0.55-1.30) mg/dl Estimated GFR ML/MIN Glucose (70-110) MG/DL Lactic Acid (0.4-2.0) Calcium (8.5-10.1) mg/dL Total Bilirubin (0.2-1.0) mg/dL AST (15-37) U/L ALT (12-78) U/L Alkaline Phosphatase (46-116) U/L Troponin I 0.020 (0.000-0.056) ng/ml Serum Total Protein (6.4-8.2) gm/dL Albumin (3.4-5.0) g/dL Ur Collection Type CATH Urine Color YELLOW (YELLOW) Urine Appearance CLOUDY (CLEAR) Urine pH 8.0 (5-6) Ur Specific Babb 1.005 (1.005-1.025) Urine Protein 500 (Negative) Urine Ketones NEGATIVE (NEGATIVE) Urine Blood 250 (0-5) Man/ul Urine Nitrite NEGATIVE (NEGATIVE) Urine Bilirubin NEGATIVE (NEGATIVE) Urine Urobilinogen NORMAL (0-1) mg/dL Ur Leukocyte Esterase 2+ (NEGATIVE) Urine Microscopic RBC 25-50 (0-2) /HPF Urine Microscopic WBC 50-100 (0-5) /HPF Ur Epithelial Cells FEW (FEW) /HPF Urine Bacteria MODERATE (NEGATIVE) /HPF Urine Glucose NEGATIVE (NEGATIVE) mg/dL Specimen Received 02/25/17 2200 02/25/17 02/25/17 02/25/17 Range/Units 21:23 21:20 21:20 WBC (4.0-10.5) K/mm3 RBC (4.1-5.4) M/mm3 Hgb (12.0-16.0) gm/dl Hct (35-47) % MCV (78-100) fl MCH (26-32) pg MCHC (32-36) g/dl RDW (11.5-14.0) % Plt Count (150-450) K/mm3 MPV (6-9.5) fl INR 1.09 (0.8-3.0) APTT 35.9 (25.3-37.0) SECONDS Puncture Site pCO2 (35-45) mmHg pO2 (75-100) mmHg Base Excess (-2.0-2.0) O2 Saturation (94-100) g/dF ABG pH (7.35-7.45) ABG HCO3 (22-28) ABG O2 Sat (Measured) (95-100) % Emil Test A-a Gradient a/A Ratio Hemoglobin Carboxyhemoglobin (0.0-6.9) % THgb Methemoglobin (1.4-1.5) % Temperature C POC O2 Flow Rate % Sodium 134 L (136-145) mEq/L Potassium 4.4 (3.5-5.1) mEq/L Chloride 98 (98-107) mEq/L Carbon Dioxide 25.0 (21-32) mEq/L Anion Gap 15.8 H (5-15) MEQ/L BUN 28 H (9-20) mg/dL Creatinine 6.36 H (0.55-1.30) mg/dl Estimated GFR 7 ML/MIN Glucose 133 H (70-110) MG/DL Lactic Acid 2.3 H (0.4-2.0) Calcium 9.1 (8.5-10.1) mg/dL Total Bilirubin 0.70 (0.2-1.0) mg/dL AST 24 (15-37) U/L ALT 8 L (12-78) U/L Alkaline Phosphatase 306 H (46-116) U/L Troponin I (0.000-0.056) ng/ml Serum Total Protein 6.7 (6.4-8.2) gm/dL Albumin 3.0 L (3.4-5.0) g/dL Ur Collection Type Urine Color (YELLOW) Urine Appearance (CLEAR) Urine pH (5-6) Ur Specific Babb (1.005-1.025) Urine Protein (Negative) Urine Ketones (NEGATIVE) Urine Blood (0-5) Man/ul Urine Nitrite (NEGATIVE) Urine Bilirubin (NEGATIVE) Urine Urobilinogen (0-1) mg/dL Ur Leukocyte Esterase (NEGATIVE) Urine Microscopic RBC (0-2) /HPF Urine Microscopic WBC (0-5) /HPF Ur Epithelial Cells (FEW) /HPF Urine Bacteria (NEGATIVE) /HPF Urine Glucose (NEGATIVE) mg/dL Specimen Received 02/25/17 Range/Units 21:20 WBC 11.3 H (4.0-10.5) K/mm3 RBC 2.97 L (4.1-5.4) M/mm3 Hgb 8.7 L (12.0-16.0) gm/dl Hct 29.0 L (35-47) % MCV 97.6 (78-100) fl MCH 29.2 (26-32) pg MCHC 30.0 L (32-36) g/dl RDW 19.8 H (11.5-14.0) % Plt Count 135 L (150-450) K/mm3 MPV 11.9 H (6-9.5) fl INR (0.8-3.0) APTT (25.3-37.0) SECONDS Puncture Site pCO2 (35-45) mmHg pO2 (75-100) mmHg Base Excess (-2.0-2.0) O2 Saturation (94-100) g/dF ABG pH (7.35-7.45) ABG HCO3 (22-28) ABG O2 Sat (Measured) (95-100) % Emil Test A-a Gradient a/A Ratio Hemoglobin Carboxyhemoglobin (0.0-6.9) % THgb Methemoglobin (1.4-1.5) % Temperature C POC O2 Flow Rate % Sodium (136-145) mEq/L Potassium (3.5-5.1) mEq/L Chloride (98-107) mEq/L Carbon Dioxide (21-32) mEq/L Anion Gap (5-15) MEQ/L BUN (9-20) mg/dL Creatinine (0.55-1.30) mg/dl Estimated GFR ML/MIN Glucose (70-110) MG/DL Lactic Acid (0.4-2.0) Calcium (8.5-10.1) mg/dL Total Bilirubin (0.2-1.0) mg/dL AST (15-37) U/L ALT (12-78) U/L Alkaline Phosphatase (46-116) U/L Troponin I (0.000-0.056) ng/ml Serum Total Protein (6.4-8.2) gm/dL Albumin (3.4-5.0) g/dL Ur Collection Type Urine Color (YELLOW) Urine Appearance (CLEAR) Urine pH (5-6) Ur Specific Babb (1.005-1.025) Urine Protein (Negative) Urine Ketones (NEGATIVE) Urine Blood (0-5) Man/ul Urine Nitrite (NEGATIVE) Urine Bilirubin (NEGATIVE) Urine Urobilinogen (0-1) mg/dL Ur Leukocyte Esterase (NEGATIVE) Urine Microscopic RBC (0-2) /HPF Urine Microscopic WBC (0-5) /HPF Ur Epithelial Cells (FEW) /HPF Urine Bacteria (NEGATIVE) /HPF Urine Glucose (NEGATIVE) mg/dL Specimen Received - Progress Progress Note: 02/25/17 22:39 She is improved after oxygen. She has 103 fever. Cultures sent. Merrem given. CAlled Dr Barraza covering for Dr Burnette and will transfer to [facility] as patient will need dialysis. Counseled pt/family regarding: lab results, diagnosis, need for follow-up, rad results - Departure Time of Disposition: 22:40 Departure Disposition: Transfer ([facility]) Clinical Impression: Chronic renal failure, Sepsis Condition: Fair Critical Care Time: Yes Critical Care Time(excluding separately billable procedures): 30-74 minutes
[2017-02-25 21:43] LABS: Mean Cell Volume 97.6 fl (78-100); Mean Platelet Volume 11.9 fl (6-9.5); Platelet Count 135 K/mm3 (150-450); Red Blood Count 2.97 M/mm3 (4.1-5.4); Red Cell Distribution Width 19.8 % (11.5-14.0); White Blood Count 11.3 K/mm3 (4.0-10.5)
[2017-02-25 21:45] LABS: Mean Corpuscular Hemoglobin 29.2 pg (26-32)
[2017-02-25] MEDS ORDERED: Sodium Chloride 0.9% 1000 ML 1,000 ML IV SCH (21:45)
[2017-02-25 22:01] LABS: INR 1.09 (0.8-3.0); PROTIME 12.3 SECONDS (9.95-12.35)
[2017-02-25] MEDS ORDERED: Sodium Chloride 0.9% 1000 ML 1,000 ML ONE (22:01)
[2017-02-25 22:04] LABS: PTT 35.9 SECONDS (25.3-37.0)
[2017-02-25 22:10] LABS: ANION GAP 15.8 MEQ/L (5-15); BILIRUBIN,TOTAL 0.7 mg/dL (0.2-1.0); Potassium 4.4 mEq/L (3.5-5.1); Total Protein 6.7 gm/dL (6.4-8.2)
[2017-02-25 22:30] LABS: Collection Type CATH; Leukocyte Esterase 2+ (NEGATIVE)
[2017-02-25 22:31] LABS: Bilirubin NEGATIVE (NEGATIVE); Blood 250 Ery/ul (0-5); COMPLETE URINE MICROSCOPIC? YES; Glucose NEGATIVE (NEGATIVE)
[2017-02-25 22:34] LABS: Bacteria MODERATE /HPF (NEGATIVE); Epithelial Cells FEW /HPF (FEW); WBC 50-100 /HPF (0-5)
[2017-02-25 22:56] LABS: ATYPICAL LYMPHS 1 %; BAND 5 % (0.0-2.0); Basophil 1 % (0.0-1.0); Metamyelocyte 1 %; Nucleated Red Blood Cell 2 %; Total Cells Counted 100
[2017-02-25 22:58] LABS: Basophilic Stippling 1+; Polychromasia 1+
[2017-02-25 22:59] LABS: ANISOCYTOSIS 1+
[2017-02-25 23:01] LABS: Platelet Estimate DECREASED (NORMAL)
[2017-02-25] MEDS ORDERED: TYLENOL 325 MG PO ONE (23:59)
[2017-02-26] MEDS ORDERED: TYLENOL 325 MG ONE (00:01)
[2017-02-26 00:57] VITALS: O2SAT 100
[2017-02-26 00:58] VITALS: BP 150/76; PULSE 80
--- NOTE | 2017-02-26 09:07 | XRAY ---
Indication: Possible sepsis. Comparison: January 17, 2017. Portable chest remains underinflated again demonstrating cardiomegaly, vascular congestion, pulmonary edema, and tiny bibasilar effusions again favoring cardiac decompensation. Superimposed pneumonia not completely excluded. Stable osteopenia and right-sided Port-A-Cath.
== END 2017-02-26 01:10 | disposition short-term general hospital (02) ==
LOC: ED 21:07
DX: N18.9 Chronic kidney disease, unspecified (principal); A41.9 Sepsis, unspecified organism; R10.9 Unspecified abdominal pain; R50.9 Fever, unspecified
CPT/HCPCS: 93041; 96365; 99285; 36000; 96360; 96361; 93005; 87040; 81000; 85610; 85730; 36415; 87430; 87186; 87070; 85025; 87077; 80053; 84484; 87086; 71010; 82803; 82375; 36600; 83605; P9612; A9270-GY

== ENCOUNTER 2017-07-17 17:17 | Emergency (ER) | payer MEDICARE, OTHER ==
[2017-07-17] MEDS ORDERED: TYLENOL 325 MG PO ONE (17:35)
[2017-07-17] MEDS ORDERED: PROVENTIL 2.5 MG/3 ML NEB IH ONE ×2 (17:41→17:47)
[2017-07-17 17:42] LABS: Lactic Acid 2.5 (0.4-2.0)
[2017-07-17 17:44] LABS: VBG BASE EXCESS 2.1 (-2.0-2.0); VBG CARBOXYHEMOGLOBIN 2.8 % T HGB (0.0-6.9); VBG HCO3- 27.3 meq/L (22-28); VBG HEMOGLOBIN 11.3; VBG O2 SATURATION 73.1 (95-100); VBG POTASSIUM 4.4 (3.5-5.1); VBG pH 7.4 (7.32-7.42)
--- NOTE | 2017-07-17 17:49 | ERPHSYRPT ---
- History of Present Illness Patient Subjective Stated Complaint: Pt states "I feel horrible, I have a fever and I ache, and I just feel bad. I was released from [facility] last night and I still feel bad." Triage Nursing Assessment: Pt alert and oriented X 3, skin pwd. Pt moaning, fidgeting. Pt able to speak in clear full sentences. Physician History: This is a 67-year-old white female who arrives with complaints of fever cough Patient states symptoms is been going on for 5 days. Patient states she was admitted to [facility] and discharged yesterday. She states that she is coughing she has a fever which she states "today. She has general malaise and aches all over. Patient was released yesterday from [facility]. Past medical history includes diabetes, COPD, congestive heart failure, myocardial infarction, renal failure on dialysis, colostomy, polycystic kidneys, . Past surgical history includes cholecystectomy, hysterectomy, colostomy, fistula. Timing/Duration: day(s) (symptoms for 5 days) Severity: moderate Modifying Factors: Improves With: nothing Associated Symptoms: shortness of breath, cough, fever, No nausea, No vomiting, No abdominal pain, No heartburn, No diaphoresis, No chills, No chest pain, No headaches, No loss of appetite, No malaise, No rash, No syncope, No seizure, No weakness Allergies/Adverse Reactions: ceftriaxone sodium [From Rocephin] Allergy (Severe, Verified 02/25/17 21:22) Difficulty Swallowing chlorpheniramine polistirex [From Tussionex] Allergy (Mild, Verified 02/25/17 21 :22) Lightheadedness hydrocodone polistirex [From Tussionex] Allergy (Mild, Verified 02/25/17 21:22) Lightheadedness Cephalosporins Allergy (Verified 02/25/17 21:22) chlorpheniramine Allergy (Verified 02/25/17 21:22) morphine Adverse Reaction (Intermediate, Verified 02/25/17 21:22) Home Medications: Cinacalcet HCl [Sensipar] 30 mg PO DAILY 08/03/15 [History] Citalopram Hydrobromide [Celexa] 20 mg PO DAILY 08/03/15 [History] Insulin Glargine,Hum.rec.anlog [Toujeo Solostar] 16 unit SQ HS 08/03/15 [History ] Insulin Lispro [Humalog Kwikpen] 7 unit SQ TID 08/03/15 [History] Ipratropium/Albuterol Sulfate [Iprat-Albut 0.5-3(2.5) mg/3 ml] 0 ml IH QID 08/03 [History] Lamotrigine 100 mg PO BID 08/03/15 [History] Methylphenidate HCl 10 mg PO DAILY 08/03/15 [History] Midodrine HCl 5 mg PO UD 08/03/15 [History] PANTOPRAZOLE 40 mg Tablet [Protonix 40MG Tablet] 40 mg PO DAILY 08/03/15 [ History] Promethazine HCl 25 mg PO DAILY PRN PRN 08/03/15 [History] Ranolazine 500 MG [Ranexa 500 MG] 500 mg PO BID 08/03/15 [History] Ropinirole HCl 1 mg PO HS 08/03/15 [History] Simvastatin 5 mg PO HS 08/03/15 [History] Zolpidem Tartrate [Ambien] 10 mg PO HS 08/03/15 [History] Aspirin 81 mg PO DAILY 09/19/15 [History] Ergocalciferol (Vitamin D2) [Vitamin D2] 50,000 unit PO Q7D 09/19/15 [History] Ferrous Sulfate 325 mg [Feosol 325 mg] 325 mg PO BID 09/19/15 [History] Chester-3 Fatty Acids/Fish Oil [Fish Oil 1,000 mg Softgel] 1 each PO BID 09/19/15 [History] Sevelamer Carbonate [Renvela] 3,200 mg PO QID 09/19/15 [History] Folic Acid 1 mg PO DAILY 01/17/17 [History] Gabapentin 300 mg PO HS 01/17/17 [History] Sucralfate 1 gm [Carafate 1 GM] 1 gm PO QID 01/17/17 [History] Hx Tetanus, Diphtheria Vaccination/Date Given: Yes Hx Influenza Vaccination/Date Given: Yes Hx Pneumococcal Vaccination/Date Given: Yes Immunizations Up to Date: Yes - Review of Systems Constitutional: Fever, Malaise, No Chills, No Fatigue, No Lethargy, No Night Sweats, No Weakness, No Weight Loss Eyes: No Symptoms Ears, Nose, & Throat: No Symptoms, No Ear Pain, No Ear Discharge, No Hearing Changes, No Tinnitus, No Nose Pain, No Nose Congestion, No Nose Discharge, No Sinus Drainage, No Epistaxis, No Mouth Pain, No Mouth Swelling, No Loose Teeth, No Throat Pain, No Throat Swelling, No Painful Swallowing, No Snoring, No Stridor Respiratory: Cough, Dyspnea, Wheezing Cardiac: No Chest Pain, No Edema, No Syncope Abdominal/Gastrointestinal: No Abdominal Pain, No Nausea, No Vomiting, No Diarrhea Genitourinary Symptoms: No Dysuria Musculoskeletal: Myalgias Skin: No Rash Neurological: No Dizziness, No Focal Weakness, No Sensory Changes Psychological: No Symptoms Endocrine: No Symptoms All Other Systems: Reviewed and Negative - Past Medical History Pertinent Past Medical History: Yes Neurological History: No Pertinent History ENT History: No Pertinent History Cardiac History: Myocardial Infarction (ND) Respiratory History: CHF, COPD Endocrine Medical History: Diabetes Type II Musculoskeletal History: No Pertinent History GI Medical History: Other History: Dialysis, Renal Disease, Other Psycho-Social History: No Pertinent History Female Reproductive Disorders: No Pertinent History Other Medical History: COLOSTOMY, RENAL FAILURE,POLCYSTIC Kidney Disease. blood transfusions. dialysis m,w,f - Past Surgical History Past Surgical History: Yes Neuro Surgical History: No Pertinent History Cardiac: Other Respiratory: No Pertinent History Gastrointestinal: Cholecystectomy, Other Musculoskeletal: No Pertinent History Female Surgical History: Hysterectomy Other Surgical History: COLOSTOMY,FISTULA - Social History Smoking Status: Former smoker How long have you smoked: 6 YEARS Exposure to second hand smoke: Yes Drug Use: none Patient Lives Alone: No - Female History Hx Last Menstrual Period: no more Hx Now: No - Nursing Vital Signs Nursing Vital Signs: Initial Vital Signs Temperature 102.4 F 07/17/17 17:20 Pulse Rate 99 H 07/17/17 17:20 Respiratory Rate 22 07/17/17 17:20 Blood Pressure 84/51 07/17/17 17:20 O2 Sat by Pulse Oximetry 98 07/17/17 17:20 Pain Scale Pain Intensity 8 - Physical Exam General Appearance: moderate distress, alert Eye Exam: PERRL/EOMI, eyes nml inspection Ears, Nose, Throat Exam: normal ENT inspection, TMs normal, pharynx normal, moist mucous membranes Neck Exam: normal inspection, non-tender, supple, full range of motion Respiratory Exam: airway intact, wheezing, No chest tenderness, No respiratory distress Cardiovascular Exam: regular rate/rhythm, normal heart sounds, normal peripheral pulses Gastrointestinal/Abdomen Exam: soft, normal bowel sounds, No tenderness, No mass Back Exam: normal inspection, normal range of motion, No CVA tenderness, No vertebral tenderness Extremity Exam: normal inspection, normal range of motion, pelvis stable Neurologic Exam: alert, oriented x 3, cooperative, waste minimization technician II-XII nml as tested, normal mood/affect, nml cerebellar function, nml station & gait, sensation nml, No motor deficits Skin Exam: normal color, warm, dry, No rash Lymphatic Exam: No adenopathy SpO2 Interpretation: normal (98%) SpO2: 98 Oxygen Delivery: Nasal Cannula - Course Nursing assessment & vital signs reviewed: Yes EKG Interpreted by Me: RATE (96 bpm), Sinus Rhythm, NORMAL AXIS, Other (EKG: Sinus rhythm 96 bpm normal axis no acute ST or T wave changes noted) - Radiology Exams Chest X-ray Interpretation: Interpreted by me (right basilar atelectasis versus infilltrate) Ordered Tests: Active Orders 24 hr Category Date Time Status Clothing Designer STAT Care 07/17/17 17:34 Active Clothing Designer STAT Care 07/17/17 17:39 Active EKG-ER Only STAT Care 07/17/17 17:39 Active IV Insertion STAT Care 07/17/17 17:34 Active IV Insertion STAT Care 07/17/17 17:39 Active Oxygen-ED Only NASAL CANNULA 4 lpm Care 07/17/17 18:22 Active Pulse Oximetry (ED) STAT Care 07/17/17 17:34 Active Pulse Oximetry (ED) STAT Care 07/17/17 17:39 Active CHEST 1 VIEW (PORTABLE) Stat Exams 07/17/17 17:40 Taken BLOOD CULTURE Stat Lab 07/17/17 17:34 Received CBC W DIFF Stat Lab 07/17/17 17:40 Completed CMP Stat Lab 07/17/17 17:40 Completed CULTURE,URINE Stat Lab 07/17/17 17:34 Ordered Lactic Acid Stat Lab 07/17/17 17:34 Results Lactic Acid Stat Lab 07/17/17 17:39 Stop Req Lactic Acid Stat Lab 07/17/17 18:43 Ordered Manual Differential NC Stat Lab 07/17/17 17:40 Completed PROTIME WITH INR Stat Lab 07/17/17 17:40 Completed PTT Stat Lab 07/17/17 17:40 Completed UA Stat Lab 07/17/17 17:34 Ordered VENOUS BLOOD GAS Stat Lab 07/17/17 17:41 Completed Respiratory Nebulizer STAT RT 07/17/17 17:42 Completed Medication Summary Discontinued Medications Generic Name Dose Route Start Last Admin Trade Name Freq PRN Reason Stop Dose Admin Acetaminophen 650 mg 07/17/17 17:35 07/17/17 17:37 Tylenol 325 Mg PO 07/17/17 17:36 Not Given STAT ONE Albuterol Sulfate 2.5 mg 07/17/17 17:41 07/17/17 17:45 Proventil 2.5 Mg/3 Ml Neb IH 07/17/17 17:42 2.5 mg STAT ONE Administration Albuterol Sulfate Confirm 07/17/17 17:47 Proventil 2.5 Mg/3 Ml Neb Administered 07/17/17 17:48 Dose 2.5 mg IH .STK-MED ONE Sodium Chloride Confirm 07/17/17 17:53 Sodium Chloride 0.9% 1000 Ml Administered 07/17/17 17:54 Dose 1,000 mls @ ud .ROUTE .STK-MED ONE Sodium Chloride 1,000 mls @ 999 mls/hr 07/17/17 17:55 07/17/17 18:04 Sodium Chloride 0.9% 1000 Ml IV 07/17/17 18:55 999 mls/hr .Q1H1M STA Administration Meropenem 500 mg/ Sodium 100 mls @ 200 mls/hr 07/17/17 18:17 07/17/17 18:21 Chloride IV 07/17/17 18:46 200 mls/hr STAT ONE Administration Lab/Rad Data: Laboratory Result Diagrams 07/17/17 17:40 07/17/17 17:40 Laboratory Results 07/17/17 07/17/17 07/17/17 Range/Units 17:41 17:40 17:40 WBC (4.0-10.5) K/mm3 RBC (4.1-5.4) M/mm3 Hgb (12.0-16.0) gm/dl Hct (35-47) % MCV (78-100) fl MCH (26-32) pg MCHC (32-36) g/dl RDW (11.5-14.0) % Plt Count (150-450) K/mm3 MPV (6-9.5) fl INR 1.07 (0.8-3.0) APTT 39.9 H (25.3-37.0) SECONDS VBG pH 7.40 (7.32-7.42) VBG pCO2 at Pat Temp 44 (42-55) mm/Hg VBG pO2 at Pat Temp 36 (25-40) mm/Hg VBG HCO3 27.3 (22-28) meq/L VBG O2 Sat (Anthony) 73.1 L (95-100) VBG Base Excess 2.1 H (-2.0-2.0) VBG Hemoglobin 11.3 VBG Carboxyhemoglobin 2.8 (0.0-6.9) % T HGB POC Potassium 4.4 (3.5-5.1) Sodium 134 L (136-145) mEq/L Potassium 4.3 (3.5-5.1) mEq/L Chloride 97 L (98-107) mEq/L Carbon Dioxide 24.1 (21-32) mEq/L Anion Gap 17.2 H (5-15) MEQ/L BUN 41 H (9-20) mg/dL Creatinine 6.55 H (0.55-1.30) mg/dl Estimated GFR 7 ML/MIN Glucose 130 H (70-110) MG/DL Lactic Acid (0.4-2.0) Calcium 8.7 (8.5-10.1) mg/dL Total Bilirubin 0.60 (0.2-1.0) mg/dL AST 27 (15-37) U/L ALT 18 (12-78) U/L Alkaline Phosphatase 173 H (46-116) U/L Serum Total Protein 6.7 (6.4-8.2) gm/dL Albumin 2.8 L (3.4-5.0) g/dL 07/17/17 07/17/17 Range/Units 17:40 17:34 WBC 10.0 (4.0-10.5) K/mm3 RBC 3.64 L (4.1-5.4) M/mm3 Hgb 10.6 L (12.0-16.0) gm/dl Hct 34.6 L (35-47) % MCV 95.1 (78-100) fl MCH 29.1 (26-32) pg MCHC 30.6 L (32-36) g/dl RDW 19.9 H (11.5-14.0) % Plt Count 93 L (150-450) K/mm3 MPV 11.4 H (6-9.5) fl INR (0.8-3.0) APTT (25.3-37.0) SECONDS VBG pH (7.32-7.42) VBG pCO2 at Pat Temp (42-55) mm/Hg VBG pO2 at Pat Temp (25-40) mm/Hg VBG HCO3 (22-28) meq/L VBG O2 Sat (Anthony) (95-100) VBG Base Excess (-2.0-2.0) VBG Hemoglobin VBG Carboxyhemoglobin (0.0-6.9) % T HGB POC Potassium (3.5-5.1) Sodium (136-145) mEq/L Potassium (3.5-5.1) mEq/L Chloride (98-107) mEq/L Carbon Dioxide (21-32) mEq/L Anion Gap (5-15) MEQ/L BUN (9-20) mg/dL Creatinine (0.55-1.30) mg/dl Estimated GFR ML/MIN Glucose (70-110) MG/DL Lactic Acid 2.5 H (0.4-2.0) Calcium (8.5-10.1) mg/dL Total Bilirubin (0.2-1.0) mg/dL AST (15-37) U/L ALT (12-78) U/L Alkaline Phosphatase (46-116) U/L Serum Total Protein (6.4-8.2) gm/dL Albumin (3.4-5.0) g/dL - Progress Progress: improved Progress Note: 07/17/17 17:54 67-year-old white female with history of diabetes, COPD, congestive heart failure, myocardial infarction, dialysis, renal disease on dialysis States that she's had a cough symptoms for 5 days Patient states that she was admitted for [facility] at [facility] was discharged yesterday. Patient states that she really hadn't felt better she states that she continues to cough she has wheezes. She has a temperature on arrival of 1024. She states that she took Tylenol one hour prior to arrival patient is noted to have a blood pressure of 84/51 on arrival On physical examination patient was scattered wheezes heart rate is regular. Patient was just discharged yesterday from [facility] she had dialysis today. Will give patient 250 bolus of normal saline appropriate labs have been ordered lactate is noted to be 2.5. Will discuss the case with Dr. MARRY Currie the patient's lung doctor as seen as x-ray has been reviewed 07/17/17 18:13 Patient with history of renal failure on dialysis. Patient is given to 50 mg IV bolus of normal saline. I have discussed the patient's case with Dr. MARRY Currie the patient's pulmonary physician. He has recently taking care of her at [facility]. He states he is willing to take the patient in transfer over to [facility]. I have discussed that I have not given the patient more than a 250 bolus of IV normal saline secondary to her history of renal failure. Blood culture has been obtained however patient has refused a second blood culture. Patient also states she doesn't produce urine. Lactate is 2.5. Patient has a blood pressure which is low of 84/51 however she has chronic renal failure. Patient's has good perfusion to her extremities heart rate is normal. Dr. Currie had recommended either him Maximin or Davis, these conflict with the patient's allergy to Rocephin I have contacted the Pharmacist here at [place] he states patient should be able to take Davis will give dose 07/17/17 18:24 Patient is receiving normal saline in 250 ml boluses due to hypotension . 07/17/17 18:34 Dr. Currie did state that the patient was discharged on oral levaquin yesterday 07/17/17 18:57 Patient refused repeat lactate. 07/17/17 19:02 Patient reevaluated. Patient with a blood pressure of 88/52. Sats 97% on 4 L. Heart rate regular 94 bpm Good perfusion all extremities good capillary refill all extremities Still with a few scattered wheezes. Patient received a total of 650 mL normal saline. the patient's nurse states that she discussed the patient with the nurses at the receiving facility. They have worked with her before and she runs blood pressures in the 80s. - Departure Time of Disposition: 19:04 Departure Disposition: Transfer ([facility] Dr MARRY Currie) Clinical Impression: Pneumonia, History of renal dialysis, History of renal failure Fever Qualifiers: Fever type: unspecified Qualified Code(s): R50.9 - Fever, unspecified Condition: Fair Critical Care Time: No Referrals: DEJON CURRIE [Primary Care Provider] -
[2017-07-17] MEDS ORDERED: Sodium Chloride 0.9% 1000 ML 1,000 ML ONE (17:53)
[2017-07-17] MEDS ORDERED: Sodium Chloride 0.9% 1000 ML 1,000 ML IV STA (17:55)
[2017-07-17 17:57] LABS: Mean Cell Volume 95.1 fl (78-100); Mean Corpuscular Hemoglobin 29.1 pg (26-32); Mean Platelet Volume 11.4 fl (6-9.5); Platelet Count 93 K/mm3 (150-450); Red Blood Count 3.64 M/mm3 (4.1-5.4); Red Cell Distribution Width 19.9 % (11.5-14.0)
[2017-07-17 18:01] LABS: INR 1.07 (0.8-3.0); PROTIME 11.9 SECONDS (9.95-12.35)
[2017-07-17 18:03] LABS: PTT 39.9 SECONDS (25.3-37.0)
[2017-07-17 18:09] LABS: ALBUMIN 2.8 g/dL (3.4-5.0); ANION GAP 17.2 MEQ/L (5-15); BILIRUBIN,TOTAL 0.6 mg/dL (0.2-1.0); Carbon Dioxide 24.1 mEq/L (21-32); Potassium 4.3 mEq/L (3.5-5.1); Total Protein 6.7 gm/dL (6.4-8.2)
[2017-07-17] MEDS ORDERED: MERREM 500MG 500 MG in Sodium Chloride 100ML MINI-BAG PLUS 100 ML IV ONE (18:17)
[2017-07-17 19:01] VITALS: BP 88/52; PULSE 94
[2017-07-17 19:02] VITALS: O2SAT 98
[2017-07-17 19:06] LABS: BAND 5 % (0.0-2.0); Eosinophil 1 % (0.00-3.0); Nucleated Red Blood Cell 2 %; Polychromasia 2+; Total Cells Counted 100
[2017-07-17 19:07] LABS: Hypochromia 1+; Platelet Estimate DECREASED (NORMAL)
[2017-07-17 19:08] LABS: ANISOCYTOSIS 2+; Poikilocytosis 2+
--- NOTE | 2017-07-18 08:38 | XRAY ---
Indication: Fever, cough, and possible sepsis. Comparison: February 25, 2017. Portable chest again underinflated with bibasilar infiltrates/atelectasis, again right greater than left. Also stable tiny effusions and right-sided Port-A-Cath. Interval diminished vascular congestion and cardiomegaly. No new cardiopulmonary abnormalities.
== END 2017-07-17 19:27 | disposition home or self-care (01) ==
LOC: ED 17:17
DX: R50.9 Fever, unspecified (principal); J18.9 Pneumonia, unspecified organism; N19 Unspecified kidney failure; Z99.2 Dependence on renal dialysis; E11.9 Type 2 diabetes mellitus without complications; I25.10 Atherosclerotic heart disease of native coronary artery without angina pectoris; I50.9 Heart failure, unspecified; I25.2 Old myocardial infarction; Z79.899 Other long term (current) drug therapy; Z79.4 Long term (current) use of insulin
CPT/HCPCS: 36000; 36415; 71010; 80053; 82805; 83605; 85025; 85610; 85730; 87040; 87077; 87186; 87631; 93005; 93041; 94640; 96360; 96361; 96365; 99285; A9270-GY

== ENCOUNTER 2017-08-13 13:28 | Emergency (ER) | payer MEDICARE, OTHER ==
[2017-08-13] MEDS ORDERED: Sodium Chloride 0.9% 1000 ML 1,000 ML IV SCH (13:45)
--- NOTE | 2017-08-13 13:54 | ERPHSYRPT ---
- History of Present Illness Time Seen by Provider: 08/13/17 13:48 Historian: patient Exam Limitations: no limitations Patient Subjective Stated Complaint: PT HERE FOR BLEEDING FROM COLOSTOMY STOMA TODAY AFTER CHANGING BAG Triage Nursing Assessment: PT HAS SMALL AMT OF BLEEDING FROM STOMA,BRIGHT RED, NO PAIN. ALERT, RESP EASY, SKIN W/D WITH MULTI BRUISIED, FISTULA TO LEFT UPPER ARM Physician History: patient presents to ED with bleeding through her stoma, that's started today. The patient with previous episode of GI bleeding approximately one month ago. States that she stopped it at that time and did not come to the hospital. Patient noted that there was a significant amount of blood filling up her stoma bag as well as bleeding around site. Patient denies any abdominal pain and was sitting/changing her bag when this occurred. Patient was admitted and released yesterday from local [facility] for what she thought was a fever/ infection. Patient was doing well at home otherwise prior incident. Timing/Duration: today Activities at Onset: rest Quality: other (none) Pain Radiation: no radiation Severity of Pain-Max: none Severity of Pain-Current: none Modifying Factors: Improves With: nothing Associated Symptoms: weakness, No back, No chest pain, No diaphoresis, No fever/ chills, No headache, No heartburn, No loss of appetite, No nausea, No shortness of breath, No syncope, No vomiting Previous symptoms: same symptoms as today Allergies/Adverse Reactions: ceftriaxone sodium [From Rocephin] Allergy (Severe, Verified 08/13/17 13:38) Difficulty Swallowing chlorpheniramine polistirex [From Tussionex] Allergy (Mild, Verified 08/13/17 13 :38) Lightheadedness hydrocodone polistirex [From Tussionex] Allergy (Mild, Verified 08/13/17 13:38) Lightheadedness Cephalosporins Allergy (Verified 08/13/17 13:38) chlorpheniramine Allergy (Verified 08/13/17 13:38) morphine Adverse Reaction (Intermediate, Verified 08/13/17 13:38) Home Medications: Cinacalcet HCl [Sensipar] 30 mg PO DAILY 08/03/15 [History] Citalopram Hydrobromide [Celexa] 20 mg PO DAILY 08/03/15 [History] Insulin Glargine,Hum.rec.anlog [Gurpreet Elymini] 16 unit SQ HS 08/03/15 [History ] Insulin Lispro [Humalog Kwikpen] 7 unit SQ TID 08/03/15 [History] Ipratropium/Albuterol Sulfate [Iprat-Albut 0.5-3(2.5) mg/3 ml] 0 ml IH QID 08/03 [History] Lamotrigine 100 mg PO BID 08/03/15 [History] Methylphenidate HCl 10 mg PO DAILY 08/03/15 [History] Midodrine HCl 5 mg PO UD 08/03/15 [History] PANTOPRAZOLE 40 mg Tablet [Protonix 40MG Tablet] 40 mg PO DAILY 08/03/15 [ History] Promethazine HCl 25 mg PO DAILY PRN PRN 08/03/15 [History] Ranolazine 500 MG [Ranexa 500 MG] 500 mg PO BID 08/03/15 [History] Ropinirole HCl 1 mg PO HS 08/03/15 [History] Simvastatin 5 mg PO HS 08/03/15 [History] Zolpidem Tartrate [Ambien] 10 mg PO HS 08/03/15 [History] Aspirin 81 mg PO DAILY 09/19/15 [History] Ergocalciferol (Vitamin D2) [Vitamin D2] 50,000 unit PO Q7D 09/19/15 [History] Ferrous Sulfate 325 mg [Feosol 325 mg] 325 mg PO BID 09/19/15 [History] [place]-3 Fatty Acids/Fish Oil [Fish Oil 1,000 mg Softgel] 1 each PO BID 09/19/15 [History] Sevelamer Carbonate [Renvela] 3,200 mg PO QID 09/19/15 [History] Folic Acid 1 mg PO DAILY 01/17/17 [History] Gabapentin 300 mg PO HS 01/17/17 [History] Sucralfate 1 gm [Carafate 1 GM] 1 gm PO QID 01/17/17 [History] Hx Tetanus, Diphtheria Vaccination/Date Given: Yes Hx Influenza Vaccination/Date Given: Yes Hx Pneumococcal Vaccination/Date Given: Yes - Review of Systems Constitutional: No No Symptoms ( ) Eyes: No Symptoms Ears, Nose, & Throat: No Symptoms Respiratory: No Cough, No Dyspnea Cardiac: No Chest Pain, No Edema, No Syncope Abdominal/Gastrointestinal: Other (bright red blood per stoma site), No Abdominal Pain, No Nausea, No Vomiting, No Diarrhea Genitourinary Symptoms: No Dysuria Musculoskeletal: No Back Pain, No Neck Pain Skin: No Rash Neurological: No Dizziness, No Focal Weakness, No Sensory Changes Psychological: No Symptoms Endocrine: No Symptoms All Other Systems: Reviewed and Negative - Past Medical History Pertinent Past Medical History: Yes Neurological History: No Pertinent History ENT History: No Pertinent History Cardiac History: Myocardial Infarction (ID) Respiratory History: CHF, COPD Endocrine Medical History: Diabetes Type II Musculoskeletal History: No Pertinent History GI Medical History: Other History: Dialysis, Renal Disease, Other Psycho-Social History: No Pertinent History Female Reproductive Disorders: No Pertinent History Other Medical History: COLOSTOMY, RENAL FAILURE,POLCYSTIC Kidney Disease. blood transfusions. dialysis m,w,f - Past Surgical History Past Surgical History: Yes Neuro Surgical History: No Pertinent History Cardiac: Other Respiratory: No Pertinent History Gastrointestinal: Cholecystectomy, Other Musculoskeletal: No Pertinent History Female Surgical History: Hysterectomy Other Surgical History: COLOSTOMY,FISTULA - Social History Smoking Status: Former smoker How long have you smoked: 6 YEARS Exposure to second hand smoke: Yes Drug Use: none Patient Lives Alone: No - Female History Hx Last Menstrual Period: POST Hx Now: No - Nursing Vital Signs Nursing Vital Signs: Initial Vital Signs Temperature 98.0 F 08/13/17 13:34 Pulse Rate 99 H 08/13/17 13:34 Respiratory Rate 18 08/13/17 13:34 Blood Pressure 106/58 08/13/17 13:34 O2 Sat by Pulse Oximetry 97 08/13/17 13:34 Pain Scale Pain Intensity 0 - Physical Exam General Appearance: no apparent distress, alert Eye Exam: PERRL/EOMI, eyes nml inspection Ears, Nose, Throat Exam: normal ENT inspection, pharynx normal, moist mucous membranes Neck Exam: normal inspection, non-tender, supple, full range of motion Respiratory Exam: normal breath sounds, lungs clear, No respiratory distress Cardiovascular Exam: regular rate/rhythm, normal heart sounds Gastrointestinal/Abdomen Exam: soft, normal bowel sounds, tenderness ( surrounding stoma site. There is some red blood noted in stoma bag), No mass Pelvic Exam: not done Rectal Exam: deferred Back Exam: normal inspection, normal range of motion, No CVA tenderness, No vertebral tenderness Extremity Exam: normal inspection, normal range of motion, pelvis stable Neurologic Exam: alert, oriented x 3, cooperative, normal mood/affect, nml cerebellar function, sensation nml, No motor deficits Skin Exam: normal color, warm, dry SpO2: 97 Oxygen Delivery: Nasal Cannula - Course Nursing assessment & vital signs reviewed: Yes - CT Exams Abdomen CT Interpretation: Negative, Other (No Intraabdominal bleeding noted) Ordered Tests: Active Orders 24 hr Category Date Time Status IV Insertion STAT Care 08/13/17 13:45 Active NPO (ED) STAT Care 08/13/17 13:45 Active ABDOMEN AND PELVIS W/0 CONTRAS [CT] Stat Exams 08/13/17 13:45 Completed CBC W DIFF Stat Lab 08/13/17 14:45 Completed CMP Stat Lab 08/13/17 14:45 Completed Lactic Acid Stat Lab 08/13/17 13:45 Results Manual Differential NC Stat Lab 08/13/17 14:45 Completed PROTIME WITH INR Stat Lab 08/13/17 14:45 Completed PTT Stat Lab 08/13/17 14:45 Completed Medication Summary Generic Name Dose Route Start Last Admin Trade Name Freq PRN Reason Stop Dose Admin Sodium Chloride 1,000 mls @ 100 mls/hr 08/13/17 13:45 08/13/17 15:08 Sodium Chloride 0.9% 1000 Ml IV 09/12/17 13:44 100 mls/hr .Q10H NOEMÍ Administration Lab/Rad Data: Laboratory Result Diagrams 08/13/17 14:45 08/13/17 14:45 Laboratory Results 08/13/17 08/13/17 08/13/17 Range/Units 14:45 14:45 14:45 WBC 4.9 (4.0-10.5) K/mm3 RBC 3.32 L (4.1-5.4) M/mm3 Hgb 9.4 L (12.0-16.0) gm/dl Hct 31.9 L (35-47) % MCV 96.1 (78-100) fl MCH 28.3 (26-32) pg MCHC 29.5 L (32-36) g/dl RDW 22.8 H (11.5-14.0) % Plt Count 46 L (150-450) K/mm3 Segmented Neutrophils 48 (36.0-66.0) % Band Neutrophils 1 (0.0-2.0) % Lymphocytes (Manual) 39 (24-44) % Monocytes (Manual) 12 (0.0-12.0) % Differential Comment ABNORMAL Platelet Estimate DECREASED (NORMAL) Anisocytosis 1+ INR 1.23 (0.8-3.0) APTT 38.2 H (25.3-37.0) SECONDS Sodium 138 (136-145) mEq/L Potassium 3.8 (3.5-5.1) mEq/L Chloride 101 (98-107) mEq/L Carbon Dioxide 29.5 (21-32) mEq/L Anion Gap 11.3 (5-15) MEQ/L BUN 8 L (9-20) mg/dL Creatinine 3.16 H (0.55-1.30) mg/dl Estimated GFR 15 ML/MIN Glucose 125 H (70-110) MG/DL Lactic Acid (0.4-2.0) Calcium 8.0 L (8.5-10.1) mg/dL Total Bilirubin 0.40 (0.2-1.0) mg/dL AST 81 H (15-37) U/L ALT 41 (12-78) U/L Alkaline Phosphatase 232 H (46-116) U/L Serum Total Protein 5.2 L (6.4-8.2) gm/dL Albumin 1.8 L (3.4-5.0) g/dL 08/13/17 Range/Units 13:45 WBC (4.0-10.5) K/mm3 RBC (4.1-5.4) M/mm3 Hgb (12.0-16.0) gm/dl Hct (35-47) % MCV (78-100) fl MCH (26-32) pg MCHC (32-36) g/dl RDW (11.5-14.0) % Plt Count (150-450) K/mm3 Segmented Neutrophils (36.0-66.0) % Band Neutrophils (0.0-2.0) % Lymphocytes (Manual) (24-44) % Monocytes (Manual) (0.0-12.0) % Differential Comment Platelet Estimate (NORMAL) Anisocytosis INR (0.8-3.0) APTT (25.3-37.0) SECONDS Sodium (136-145) mEq/L Potassium (3.5-5.1) mEq/L Chloride (98-107) mEq/L Carbon Dioxide (21-32) mEq/L Anion Gap (5-15) MEQ/L BUN (9-20) mg/dL Creatinine (0.55-1.30) mg/dl Estimated GFR ML/MIN Glucose (70-110) MG/DL Lactic Acid 3.9 H (0.4-2.0) Calcium (8.5-10.1) mg/dL Total Bilirubin (0.2-1.0) mg/dL AST (15-37) U/L ALT (12-78) U/L Alkaline Phosphatase (46-116) U/L Serum Total Protein (6.4-8.2) gm/dL Albumin (3.4-5.0) g/dL - Progress Progress: unchanged Progress Note: 08/13/17 16:50 Dr. Carrillo, physician at [facility] notified and agreed to accept for further care. 08/13/17 16:51 Discussed with DrChristiane: Other (Dr. Carrillo) Counseled pt/family regarding: diagnosis - Departure Time of Disposition: 15:50 Departure Disposition: Home, Transfer ([facility]) Clinical Impression: GI bleed Condition: Stable Critical Care Time: No Referrals: DEJON CURRIE [Primary Care Provider] -
--- NOTE | 2017-08-13 14:30 | XRAY ---
Indication: Colostomy bag came off with blood around colostomy site. Multiple contiguous axial images obtained through the abdomen and pelvis without contrast as ordered. Comparison: May 19, 2014. Lung bases again demonstrates scattered fibrosis/scarring and minimal bibasilar atelectasis. No consolidation or effusion. Heart is not enlarged. Noncontrasted stomach and bowel loops appear nonobstructed. Again there is a right lower quadrant ostomy with large abdominal wall defect and herniation of omental fat and small bowel loops without obstruction/incarceration. No abdominal wall fluid or air collection. New diffuse radiopacity throughout the colon presumed from ingested medication. Again scattered colonic diverticulosis throughout. No free fluid/air. Stable extensive polycystic kidney disease again with several dense cysts and calcifications bilaterally. No hydronephrosis or hydroureter. Stable posterior urinary bladder punctate calculi chest adjacent to the UVJ. Stable fatty liver with benign peripheral calcifications. Spleen remains enlarged measuring 15.7 cm in greatest axial dimension. Previous reported cholecystectomy, appendectomy, and hysterectomy. Remaining pancreas and adrenal glands unremarkable for noncontrast exam. There remains extensive scattered vascular calcifications. Stable 3 cm fusiform distal AAA. Osseous structures intact again with mild degenerative changes throughout the spine. New healing right seventh rib fracture. Impression: 1. Stable right lower quadrant ostomy with underlying large abdominal wall defect and herniation of omental fat and small bowel loops without complications. Stable diffuse colonic diverticulosis without diverticulitis. 2. Stable extensive polycystic kidney disease with again several dense cysts and calcifications bilaterally. Stable bilateral urinary bladder micro-calculi. 3. Stable fatty liver with benign peripheral calcifications and splenomegaly. 4. Stable extensive arteriosclerotic disease and distal AAA. 4. No new/acute intra-abdominal/pelvic abnormalities on this noncontrast exam. CT DI 23.04
[2017-08-13 14:51] LABS: Granulocyte Absolute (ANC) 1.86 (1.4-6.9); Hematocrit 31.9 % (35-47); Hemoglobin 9.4 gm/dl (12.0-16.0); Mean Cell Volume 96.1 fl (78-100); Mean Corpuscular Hemoglobin 28.3 pg (26-32); Mean Corpuscular Hgb Concent. 29.5 g/dl (32-36); Platelet Count 46 K/mm3 (150-450); Red Blood Count 3.32 M/mm3 (4.1-5.4); Red Cell Distribution Width 22.8 % (11.5-14.0); White Blood Count 4.9 K/mm3 (4.0-10.5)
[2017-08-13 14:55] LABS: Lactic Acid 3.9 (0.4-2.0)
[2017-08-13] MEDS ORDERED: Sodium Chloride 0.9% 1000 ML 1,000 ML ONE (15:04)
[2017-08-13 15:12] LABS: INR 1.23 (0.8-3.0)
[2017-08-13 15:15] LABS: PTT 38.2 SECONDS (25.3-37.0)
[2017-08-13 15:21] LABS: ALBUMIN 1.8 g/dL (3.4-5.0); ANION GAP 11.3 MEQ/L (5-15); BILIRUBIN,TOTAL 0.4 mg/dL (0.2-1.0); Carbon Dioxide 29.5 mEq/L (21-32); Creatinine 1 3.16 mg/dl (0.55-1.30); Potassium 3.8 mEq/L (3.5-5.1); Total Protein 5.2 gm/dL (6.4-8.2)
[2017-08-13 15:48] LABS: BAND 1 % (0.0-2.0); Lymphocytes 39 % (24-44); Monocyte 12 % (0.0-12.0); Neutrophils 48 % (36.0-66.0); Platelet Estimate DECREASED (NORMAL); Total Cells Counted 100
[2017-08-13 15:49] LABS: ANISOCYTOSIS 1+
[2017-08-13 16:13] VITALS: BP 95/48; PULSE 78; O2SAT 97
== END 2017-08-13 16:30 | disposition short-term general hospital (02) ==
LOC: ED 13:28
DX: K92.2 Gastrointestinal hemorrhage, unspecified (principal); Z93.3 Colostomy status; Z79.899 Other long term (current) drug therapy
CPT/HCPCS: 36000; 36415; 74176; 80053; 83605; 85025; 85610; 85730; 96360; 99285

== ENCOUNTER 2017-11-05 04:45 | Emergency (ER) | payer MEDICARE, OTHER ==
[2017-11-05 04:58] VITALS: O2SAT 100
--- NOTE | 2017-11-05 05:12 | ERPHSYRPT ---
- History of Present Illness Time Seen by Provider: 11/05/17 05:00 Source: patient Exam Limitations: clinical condition Patient Subjective Stated Complaint: pt states she tripped over her oxygen tubing and fell into the oxygen tank, striking her left cheek against the regulator; pt denies any loss of consciousness; approx 4cm skin tear/laceration to left cheek distal to left eye; minor bleeding upon arrival. Triage Nursing Assessment: pt a&o x3; skin p, w, & d; no other distress or discomfort noted; bleeding controlled upon arrival. Physician History: PATIENT WITH A HISTORY OF CHRONIC RENAL FAILURE, TYPE 2 DIABETES TRIPPED OVER OXYGEN TUBING, FAIL AND STRUCK FACE AGAINST OXYGEN TANK SUSTAINING LACERATION OVER LEFT CHEEK, AND NECK PAIN. DENIES HEADACHE, LOSS OF CONSCIOUSNESS, NAUSEA , BLURRED VISION, NUMBNESS, TINGLING OR WEAKNESS IN EXTREMITIES. Occurred: just prior to arrival Reason for Fall: tripped Injuries/Pain Location: head, face, neck Loss of Consciousness: no loss of consciousness Severity of Pain-Max: mild Severity of Pain-Current: mild Associated Symptoms (Fall): other (FACIAL LACERATION, SWELLING) Allergies/Adverse Reactions: ceftriaxone sodium [From Rocephin] Allergy (Severe, Verified 11/05/17 04:58) Difficulty Swallowing chlorpheniramine polistirex [From Tussionex] Allergy (Mild, Verified 11/05/17 04 :58) Lightheadedness hydrocodone polistirex [From Tussionex] Allergy (Mild, Verified 11/05/17 04:58) Lightheadedness Cephalosporins Allergy (Verified 11/05/17 04:58) chlorpheniramine Allergy (Verified 11/05/17 04:58) morphine Adverse Reaction (Intermediate, Verified 11/05/17 04:58) Home Medications: Cinacalcet HCl [Sensipar] 30 mg PO DAILY 08/03/15 [History] Citalopram Hydrobromide [Celexa] 20 mg PO DAILY 08/03/15 [History] Insulin Glargine,Hum.rec.anlog [Toujim Solostar] 16 unit SQ HS 08/03/15 [History ] Insulin Lispro [Humalog Kwikpen] 7 unit SQ TID 08/03/15 [History] Ipratropium/Albuterol Sulfate [Iprat-Albut 0.5-3(2.5) mg/3 ml] 0 ml IH QID 08/03 [History] Lamotrigine 100 mg PO BID 08/03/15 [History] Methylphenidate HCl 10 mg PO DAILY 08/03/15 [History] Midodrine HCl 5 mg PO UD 08/03/15 [History] PANTOPRAZOLE 40 mg Tablet [Protonix 40MG Tablet] 40 mg PO DAILY 08/03/15 [ History] Promethazine HCl 25 mg PO DAILY PRN PRN 08/03/15 [History] Ranolazine 500 MG [Ranexa 500 MG] 500 mg PO BID 08/03/15 [History] Ropinirole HCl 1 mg PO HS 08/03/15 [History] Simvastatin 5 mg PO HS 08/03/15 [History] Zolpidem Tartrate [Ambien] 10 mg PO HS 08/03/15 [History] Aspirin 81 mg PO DAILY 09/19/15 [History] Ergocalciferol (Vitamin D2) [Vitamin D2] 50,000 unit PO Q7D 09/19/15 [History] Ferrous Sulfate 325 mg [Feosol 325 mg] 325 mg PO BID 09/19/15 [History] [place]-3 Fatty Acids/Fish Oil [Fish Oil 1,000 mg Softgel] 1 each PO BID 09/19/15 [History] Sevelamer Carbonate [Renvela] 3,200 mg PO QID 09/19/15 [History] Folic Acid 1 mg PO DAILY 01/17/17 [History] Gabapentin 300 mg PO HS 01/17/17 [History] Sucralfate 1 gm [Carafate 1 GM] 1 gm PO QID 01/17/17 [History] Hx Tetanus, Diphtheria Vaccination/Date Given: No Hx Influenza Vaccination/Date Given: Yes Hx Pneumococcal Vaccination/Date Given: Yes Immunizations Up to Date: No - Review of Systems Constitutional: No Fever, No Chills Eyes: No Symptoms Ears, Nose, & Throat: Other (FACIAL LACERATION, SWELLING) Respiratory: No Cough, No Dyspnea Cardiac: No Symptoms, No Chest Pain, No Edema, No Syncope Abdominal/Gastrointestinal: No Symptoms, No Abdominal Pain, No Nausea, No Vomiting, No Diarrhea Genitourinary Symptoms: No Symptoms, No Dysuria Musculoskeletal: Neck Pain, No Back Pain Skin: No Rash Neurological: No Symptoms, No Dizziness, No Focal Weakness, No Sensory Changes Psychological: No Symptoms Endocrine: No Symptoms All Other Systems: Reviewed and Negative - Past Medical History Pertinent Past Medical History: Yes Neurological History: No Pertinent History ENT History: No Pertinent History Cardiac History: Myocardial Infarction (MT) Respiratory History: CHF, COPD Endocrine Medical History: Diabetes Type II Musculoskeletal History: No Pertinent History GI Medical History: Other History: Dialysis, Renal Disease, Other Psycho-Social History: No Pertinent History Female Reproductive Disorders: No Pertinent History Other Medical History: COLOSTOMY, RENAL FAILURE,POLCYSTIC Kidney Disease. blood transfusions. dialysis m,w,f - Past Surgical History Past Surgical History: Yes Neuro Surgical History: No Pertinent History Cardiac: Other Respiratory: No Pertinent History Gastrointestinal: Cholecystectomy, Other Musculoskeletal: No Pertinent History Female Surgical History: Hysterectomy Other Surgical History: COLOSTOMY,FISTULA - Social History Smoking Status: Former smoker How long have you smoked: 6 YEARS Exposure to second hand smoke: No Drug Use: none Patient Lives Alone: No - Female History Hx Last Menstrual Period: partial hysterectomy Hx Now: No - Nursing Vital Signs Nursing Vital Signs: Initial Vital Signs Temperature 98 F 11/05/17 04:46 Pulse Rate 80 11/05/17 04:46 Respiratory Rate 18 11/05/17 04:46 Blood Pressure 132/57 11/05/17 04:46 O2 Sat by Pulse Oximetry 100 11/05/17 04:46 Pain Scale Pain Intensity 8 - [place] Coma Score Best Eye Response ([place]): (4) open spontaneously Best Verbal Response ([place]): (5) oriented Best Motor Response ([place]): (6) obeys commands [place] Total: 15 - Physical Exam General Appearance: no apparent distress, alert Head Injury: no evidence of injury Eye Exam: PERRL/EOMI ENT Exam: airway nml, other (THERE IS A LEFT MAXILLARY LACERATION MEASURES 5CM WITH SWELLING, NO ECCHYMOSIS) Neck Exam: normal inspection, tenderness (LEFT POSTERIOR CERVICAL AREA, RIGID CERVICAL COLLAR APPLIED) Respiratory/Chest Exam: normal breath sounds, No chest tenderness, No respiratory distress Cardiovascular Exam: normal heart sounds, regular rate/rhythm Gastrointestinal Exam: soft, No tenderness, No distention, No guarding, No ecchymosis Back Exam: normal inspection, No vertebral tenderness Extremity Exam: normal inspection, normal range of motion, pelvis stable, No deformities Peripheral Pulses: carotid (R): 2+, carotid (L): 2+, femoral (R): 2+, femoral (L ): 2+, dorsalis-pedis (R): 2+, dorsalis-pedis (L): 2+ Neurologic Exam: alert, oriented x 3, cooperative, sensation nml, No motor deficits Skin Exam: normal color, warm, dry SpO2: 100 Oxygen Delivery: Nasal Cannula Procedures - Laceration/Wound Repair Left Face Wound Location: Left (MAXILLARY SINUS) Wound Length (cm): 5 Wound's Depth, Shape: into subcut (CURVILINEAR) Wound Explored: clean Irrigated: Yes Hibiclens Prep: Yes Anesthesia: local, 2% Lidocaine Volume Anesthetic (ccs): 5 Wound Repaired With: sutures Suture Size/Type: 5-0, ethilon Number of Sutures: 8 Layer Closure?: No - CT Exams Maxillofacial Bones CT Interpretation: Tele-radiologist Report (LEFT INFRAORBITAL LACERATION WITH SUBCUTANEOUS HEMTOMA AND SOFT TISSUE GAS, OPACIFICATION OF THE RIGHT MAXILLARY SINUS) Cervical Spine CT Interpretation: No Fracture, No Subluxation Head CT Interpretation: Tele-radiologist Report, No/Intracranial Hemorrhag Ordered Tests: Active Orders 24 hr Category Date Time Status Cervical Collar Application STAT Care 11/05/17 05:15 Active CERVICAL SPINE WO CONTRAST [CT] Stat Exams 11/05/17 05:04 Ordered FACIAL BONES WO CONTRAST [CT] Stat Exams 11/05/17 05:06 Ordered HEAD WITHOUT CONTRAST [CT] Stat Exams 11/05/17 05:05 Ordered Medication Summary Discontinued Medications Generic Name Dose Route Start Last Admin Trade Name Kim PRN Reason Stop Dose Admin Lidocaine HCl 5 ml 11/05/17 05:15 11/05/17 05:23 Xylocaine 2% Hcl 20 Ml Mdv IJ 11/05/17 05:16 5 ml STAT ONE Administration Lidocaine HCl Confirm 11/05/17 05:21 Xylocaine 2% Hcl 20 Ml Mdv Administered 11/05/17 05:22 Dose 1 ml .ROUTE .STK-MED ONE - Progress Progress: improved Counseled pt/family regarding: need for follow-up, rad results - Departure Time of Disposition: 06:45 Departure Disposition: Home Clinical Impression: LEFT INFRAORBITAL LACERATION, ACUTE CERVICAL STRAIN, SCALP CONTUSION Condition: Stable Critical Care Time: No Referrals: DEJON CURRIE [Primary Care Provider] - Additional Instructions: ANTIBIOTIC AMOXICILLIN 500MG EVERY 8 HOURS FOR 10 DAYS. HAVE STITCHES REMOVED AT 10 DAYS. APPLY ICE OVER FACIAL SWELLING EVERY 4 HOURS, DURATION 30 MINUTES FOR 48 HOURS. WATCH FOR SIGNS OF INFECTION, REDNESS, SWELLING OR DRAINAGE. FOLLOW HEAD INJURY INSTRUCTIONS. Prescriptions: Amoxicillin [Amoxil] 500 mg PO TID #30 capsule
[2017-11-05] MEDS ORDERED: XYLOCAINE 2% HCL 20 ML MDV IJ ONE (05:15)
[2017-11-05] MEDS ORDERED: XYLOCAINE 2% HCL 20 ML MDV ONE (05:21)
[2017-11-05 07:06] VITALS: BP 158/86; PULSE 78
--- NOTE | 2017-11-05 09:12 | XRAY ---
Indication: Left eye laceration following fall. Multiple contiguous axial images obtained through the head without contrast as ordered. Comparison: May 03, 2014. Several images through base of the brain slightly degraded by motion artifact. Stable age-appropriate global atrophy and mild periventricular degenerative micro-ischemia bilaterally. No acute intracranial hemorrhage, abnormal extra-axial fluid collection, or mass effect. Calvarium intact. There is again partially visualized complete opacification of the right maxillary sinus. Mastoid air cells clear. CT facial bones and CT cervical spine reported separately. Impression: 1. Motion artifact. 2. No new or acute intracranial abnormalities. Comment: Preliminary interpretation was made by [facility]. No critical discrepancy. CT DI 48.95
--- NOTE | 2017-11-05 09:23 | XRAY ---
Indication: Left eye laceration following fall. Multiple contiguous axial images obtained through the facial bones. Comparison: February 13, 2017. New left infraorbital soft tissue laceration/soft tissue swelling without radiopaque foreign body. New minimally depressed fracture involving the anterior wall of the left maxillary sinus medially. Orbits including roof, ochoa, and floors intact. Stable chronic complete opacification of the right maxillary sinus. New minimal mucosal thickening involving the floor the left maxillary sinus. Remaining paranasal sinuses and nasal passages are clear. Again minimal nasal septal deviation to the left. Remaining visualized noncontrasted soft tissues unremarkable. CT head and CT cervical spine reported separately. Impression: 1. Minimally depressed anterior left maxillary sinus wall fracture with overlying soft tissue swelling/laceration. 2. Chronic complete opacification of the right maxillary sinus. Minimal left maxillary sinus disease. Comment: Preliminary interpretation was made by [facility]. Fracture not reported. Telephone report given to Dr. Richards in the ER at 0925 hrs. on November 05, 2017. CT DI 48.95
--- NOTE | 2017-11-05 15:48 | XRAY ---
Indication: Left eye laceration following fall. Multiple contiguous axial images obtained through the cervical spine. Sagittal and coronal reformatted images obtained. Comparison: None. Images through the lower spine slightly degraded by motion artifact. Age-related osteopenia. Axial images negative for acute fracture, suspicious bony lesions, or spinal canal stenosis. Moderate C5-T1 degenerative endplate spurring. Sagittal and coronal reformatted images demonstrates normal alignment with C5-C7 degenerative disc space narrowing. No acute compression fracture, subluxation, or jumped facet. Normal-appearing craniocervical junction. Extensive scattered vascular calcifications. Lung apices clear. Remaining visualized noncontrasted soft tissues unremarkable. CT head and CT facial bones reported separately. Impression: 1. Minimal motion artifact. 2. Negative acute fracture/subluxation. 2. Osteopenia, C5-T1 degenerative changes, and extensive vascular calcifications. Comment: Preliminary interpretation was made by [facility]. No discrepancy. CT DI 127.51
== END 2017-11-05 07:05 | disposition home or self-care (01) ==
LOC: ED 04:45
PROC: 0HQ1XZZ Repair Face Skin, External Approach (ICD-10-PCS; principal; 2017-11-05)
DX: S01.412A Laceration without foreign body of left cheek and temporomandibular area, initial encounter (principal); S02.40DA Maxillary fracture, left side, initial encounter for closed fracture; M54.2 Cervicalgia; R51 Headache; S16.1XXA Strain of muscle, fascia and tendon at neck level, initial encounter; S00.03XA Contusion of scalp, initial encounter; W01.198A Fall on same level from slipping, tripping and stumbling with subsequent striking against other object, initial encounter; Z99.81 Dependence on supplemental oxygen
CPT/HCPCS: 12013; 70450; 70486; 72125; 96372; 99283

== ENCOUNTER 2018-01-30 09:43 | Emergency (ER) | payer MEDICARE, OTHER ==
--- NOTE | 2018-01-30 10:12 | ERPHSYRPT ---
- History of Present Illness Time Seen by Provider: 01/30/18 10:04 Source: patient Exam Limitations: no limitations Patient Subjective Stated Complaint: pt here for vaginal bleeding for a month. worse today with clots has seen dr mckinney and was given meds, Triage Nursing Assessment: pt alert,resp easy, skin w/d. pt has dyialsis cath to left upper arm,abd soft. Physician History: 67-year-old white female arrives with complaint of vaginal bleeding for 2 years worse for the last month. She states that she's had clots. She has seen Dr. Mckinney for this in the past. Past medical history includes myocardial infarction, congestive heart failure, COPD, diabetes type 2, dialysis, renal disease, renal failure, polycystic renal disease, blood transfusions. Past surgical history includes hysterectomy, colonoscopy, fistula. Timing/Duration: other (patient states vaginal bleeding x 2 years, worse for the past month) Severity: moderate Modifying Factors: Improves With: nothing Associated Symptoms: No nausea, No vomiting, No shortness of breath, No heartburn, No diaphoresis, No cough, No chills, No chest pain, No fever, No headaches, No loss of appetite, No malaise, No rash, No syncope, No seizure, No weakness Allergies/Adverse Reactions: ceftriaxone sodium [From Rocephin] Allergy (Severe, Verified 01/30/18 10:01) Difficulty Swallowing chlorpheniramine polistirex [From Tussionex] Allergy (Mild, Verified 01/30/18 10 :01) Lightheadedness hydrocodone polistirex [From Tussionex] Allergy (Mild, Verified 01/30/18 10:01) Lightheadedness Cephalosporins Allergy (Verified 01/30/18 10:01) chlorpheniramine Allergy (Verified 01/30/18 10:01) morphine Adverse Reaction (Intermediate, Verified 01/30/18 10:01) Home Medications: Cinacalcet HCl [Sensipar] 30 mg PO DAILY 08/03/15 [History] Citalopram Hydrobromide [Celexa] 20 mg PO DAILY 08/03/15 [History] Insulin Glargine,Hum.rec.anlog [Toujeo Solostar] 16 unit SQ HS 08/03/15 [History ] Insulin Lispro [Humalog Kwikpen] 7 unit SQ TID 08/03/15 [History] Ipratropium/Albuterol Sulfate [Iprat-Albut 0.5-3(2.5) mg/3 ml] 0 ml IH QID 08/03 [History] Lamotrigine 100 mg PO BID 08/03/15 [History] Methylphenidate HCl 10 mg PO DAILY 08/03/15 [History] Midodrine HCl 5 mg PO UD 08/03/15 [History] PANTOPRAZOLE 40 mg Tablet [Protonix 40MG Tablet] 40 mg PO DAILY 08/03/15 [ History] Promethazine HCl 25 mg PO DAILY PRN PRN 08/03/15 [History] Ranolazine 500 MG [Ranexa 500 MG] 500 mg PO BID 08/03/15 [History] Ropinirole HCl 1 mg PO HS 08/03/15 [History] Simvastatin 5 mg PO HS 08/03/15 [History] Zolpidem Tartrate [Ambien] 10 mg PO HS 08/03/15 [History] Aspirin 81 mg PO DAILY 09/19/15 [History] Ergocalciferol (Vitamin D2) [Vitamin D2] 50,000 unit PO Q7D 09/19/15 [History] Ferrous Sulfate 325 mg [Feosol 325 mg] 325 mg PO BID 09/19/15 [History] Maxwell-3 Fatty Acids/Fish Oil [Fish Oil 1,000 mg Softgel] 1 each PO BID 09/19/15 [History] Sevelamer Carbonate [Renvela] 3,200 mg PO QID 09/19/15 [History] Folic Acid 1 mg PO DAILY 01/17/17 [History] Gabapentin 300 mg PO HS 01/17/17 [History] Sucralfate 1 gm [Carafate 1 GM] 1 gm PO QID 01/17/17 [History] Hx Tetanus, Diphtheria Vaccination/Date Given: No Hx Influenza Vaccination/Date Given: Yes Hx Pneumococcal Vaccination/Date Given: Yes Immunizations Up to Date: Yes - Review of Systems Constitutional: No Fever, No Chills Eyes: No Symptoms Ears, Nose, & Throat: No Symptoms Respiratory: No Cough, No Dyspnea Cardiac: No Chest Pain, No Edema, No Syncope Abdominal/Gastrointestinal: No Abdominal Pain, No Nausea, No Vomiting, No Diarrhea Genitourinary Symptoms: Vaginal Bleeding Musculoskeletal: No Back Pain, No Neck Pain Skin: No Rash Neurological: No Dizziness, No Focal Weakness, No Sensory Changes Psychological: No Symptoms Endocrine: No Symptoms All Other Systems: Reviewed and Negative - Past Medical History Pertinent Past Medical History: Yes Neurological History: No Pertinent History ENT History: No Pertinent History Cardiac History: Myocardial Infarction ([place]) Respiratory History: CHF, COPD Endocrine Medical History: Diabetes Type II Musculoskeletal History: No Pertinent History GI Medical History: Other History: Dialysis, Renal Disease, Other Psycho-Social History: No Pertinent History Female Reproductive Disorders: No Pertinent History Other Medical History: COLOSTOMY, RENAL FAILURE,POLCYSTIC Kidney Disease. blood transfusions. dialysis m,w,f - Past Surgical History Past Surgical History: Yes Neuro Surgical History: No Pertinent History Cardiac: Other Respiratory: No Pertinent History Gastrointestinal: Cholecystectomy, Other Musculoskeletal: No Pertinent History Female Surgical History: Hysterectomy Other Surgical History: COLOSTOMY,FISTULA - Social History Smoking Status: Former smoker How long have you smoked: 6 YEARS Exposure to second hand smoke: No Drug Use: none Patient Lives Alone: No - Female History Hx Last Menstrual Period: post Hx Now: No - Nursing Vital Signs Nursing Vital Signs: Initial Vital Signs Temperature 98.6 F 01/30/18 09:52 Pulse Rate 93 H 01/30/18 09:52 Respiratory Rate 20 01/30/18 09:52 Blood Pressure 124/38 01/30/18 09:52 O2 Sat by Pulse Oximetry 95 01/30/18 09:52 Pain Scale Pain Intensity 0 - Physical Exam General Appearance: no apparent distress, alert Eye Exam: PERRL/EOMI, eyes nml inspection Ears, Nose, Throat Exam: normal ENT inspection, TMs normal, pharynx normal, moist mucous membranes Neck Exam: normal inspection, non-tender, supple, full range of motion Respiratory Exam: normal breath sounds, lungs clear, No respiratory distress Cardiovascular Exam: regular rate/rhythm, normal heart sounds, normal peripheral pulses Gastrointestinal/Abdomen Exam: soft, normal bowel sounds, No tenderness, No mass Pelvic Exam: other (small amount of blood in vagina removed with mckinley swab, no active bleeding after removal of blood, no speculum available small enough to perform speculim examination) Rectal Exam: other (normal sphincter tone no stool obtained no active bleeding, some residual blood staining from vavinal bleeding) Back Exam: normal inspection, normal range of motion, No CVA tenderness, No vertebral tenderness Extremity Exam: normal inspection, normal range of motion, pelvis stable Neurologic Exam: alert, oriented x 3, cooperative, [employer] II-XII nml as tested, normal mood/affect, nml cerebellar function, nml station & gait, sensation nml, No motor deficits Skin Exam: normal color, warm, dry, No rash SpO2 Interpretation: normal (95%) SpO2: 95 Oxygen Delivery: Nasal Cannula Ordered Tests: Active Orders 24 hr Category Date Time Status IV Insertion STAT Care 01/30/18 10:08 Active Orthostatic Vital Signs STAT Care 01/30/18 10:56 Active Pelvic Exam Assist STAT Care 01/30/18 10:52 Active cath [Cath for Specimen-Straight] STAT Care 01/30/18 10:53 Active CBC W DIFF Stat Lab 01/30/18 10:13 Completed CMP Stat Lab 01/30/18 10:13 Completed CULTURE,URINE Stat Lab 01/30/18 10:59 Received Manual Differential NC Stat Lab 01/30/18 10:13 Completed PROTIME WITH INR Stat Lab 01/30/18 10:13 Completed UA W/ MICROSCOPIC Stat Lab 01/30/18 10:59 Completed Lab/Rad Data: Laboratory Result Diagrams 01/30/18 10:13 01/30/18 10:13 Laboratory Results 01/30/18 01/30/18 01/30/18 Range/Units 10:59 10:13 10:13 WBC (4.0-10.5) K/mm3 RBC (4.1-5.4) M/mm3 Hgb (12.0-16.0) gm/dl Hct (35-47) % MCV (78-100) fl MCH (26-32) pg MCHC (32-36) g/dl RDW (11.5-14.0) % Plt Count (150-450) K/mm3 MPV (6-9.5) fl Segmented Neutrophils (36.0-66.0) % Band Neutrophils (0.0-2.0) % Lymphocytes (Manual) (24-44) % Monocytes (Manual) (0.0-12.0) % Atypical Lymphocytes % Platelet Estimate (NORMAL) RBC Morphology Poikilocytosis Anisocytosis PT 12.9 H (9.95-12.35) SECONDS INR 1.11 (0.8-3.0) Sodium 134 L (137-145) mmol/L Potassium 3.9 (3.5-5.1) mmol/L Chloride 96 L (98-107) mmol/L Carbon Dioxide 28 (22-30) mmol/L Anion Gap 14.0 (5-15) MEQ/L BUN 14 (7-17) mg/dL Creatinine 3.21 H (0.52-1.04) mg/dL Estimated GFR 15.2 ML/MIN Glucose 143 H (74-106) mg/dL Calcium 7.8 L (8.4-10.2) mg/dL Total Bilirubin 0.70 (0.2-1.3) mg/dL AST 30 (14-36) U/L ALT 16 (0-35) U/L Alkaline Phosphatase 227 H (38-126) U/L Serum Total Protein 6.5 (6.3-8.2) g/dL Albumin 3.1 L (3.5-5.0) g/dL Ur Collection Type CATH Urine Color DARK YELLOW (YELLOW) Urine Appearance CLOUDY (CLEAR) Urine pH 8.0 (5-6) Ur Specific Harvey 1.010 (1.005-1.025) Urine Protein 3+ (Negative) Urine Ketones TRACE (NEGATIVE) Urine Blood 250 (0-5) Man/ul Urine Nitrite POSITIVE (NEGATIVE) Urine Bilirubin NEGATIVE (NEGATIVE) Urine Urobilinogen NORMAL (0-1) mg/dL Ur Leukocyte Esterase 2+ (NEGATIVE) Urine Microscopic RBC >100 (0-2) /HPF Urine Microscopic WBC >100 (0-5) /HPF Ur Epithelial Cells FEW (FEW) /HPF Urine Bacteria FEW (NEGATIVE) /HPF Urine Culture Reflexed YES (NO) Urine Glucose NEGATIVE (NEGATIVE) mg/dL Specimen Received 01/30 1059 01/30/18 Range/Units 10:13 WBC 6.9 (4.0-10.5) K/mm3 RBC 3.97 L (4.1-5.4) M/mm3 Hgb 10.5 L (12.0-16.0) gm/dl Hct 35.2 (35-47) % MCV 88.7 (78-100) fl MCH 26.4 (26-32) pg MCHC 29.8 L (32-36) g/dl RDW 22.7 H (11.5-14.0) % Plt Count 82 L (150-450) K/mm3 MPV 11.2 H (6-9.5) fl Segmented Neutrophils 52 (36.0-66.0) % Band Neutrophils 4 H (0.0-2.0) % Lymphocytes (Manual) 32 (24-44) % Monocytes (Manual) 11 (0.0-12.0) % Atypical Lymphocytes 1 % Platelet Estimate DECREASED (NORMAL) RBC Morphology ABNORMAL Poikilocytosis 1+ Anisocytosis 1+ PT (9.95-12.35) SECONDS INR (0.8-3.0) Sodium (137-145) mmol/L Potassium (3.5-5.1) mmol/L Chloride (98-107) mmol/L Carbon Dioxide (22-30) mmol/L Anion Gap (5-15) MEQ/L BUN (7-17) mg/dL Creatinine (0.52-1.04) mg/dL Estimated GFR ML/MIN Glucose (74-106) mg/dL Calcium (8.4-10.2) mg/dL Total Bilirubin (0.2-1.3) mg/dL AST (14-36) U/L ALT (0-35) U/L Alkaline Phosphatase (38-126) U/L Serum Total Protein (6.3-8.2) g/dL Albumin (3.5-5.0) g/dL Ur Collection Type Urine Color (YELLOW) Urine Appearance (CLEAR) Urine pH (5-6) Ur Specific Harvey (1.005-1.025) Urine Protein (Negative) Urine Ketones (NEGATIVE) Urine Blood (0-5) Man/ul Urine Nitrite (NEGATIVE) Urine Bilirubin (NEGATIVE) Urine Urobilinogen (0-1) mg/dL Ur Leukocyte Esterase (NEGATIVE) Urine Microscopic RBC (0-2) /HPF Urine Microscopic WBC (0-5) /HPF Ur Epithelial Cells (FEW) /HPF Urine Bacteria (NEGATIVE) /HPF Urine Culture Reflexed (NO) Urine Glucose (NEGATIVE) mg/dL Specimen Received - Progress Progress: improved Progress Note: 01/30/18 11:59 Patient arrives with complaint of chronic of vaginal bleeding increased the past several days. Patient's labs are stable. Patient with minimal vaginal bleeding. Patient did have greater than 100 white cells per high-power field in her urine as well as greater than 100 red cells per high-power field in her urine we'll place patient on Cipro 250 mg orally daily. Patient does not want to wait for me to talk to her family physician. Will discharge. . - Departure Time of Disposition: 12:00 Departure Disposition: Home Clinical Impression: Vaginal bleeding UTI (urinary tract infection) Qualifiers: Urinary tract infection type: site unspecified Hematuria presence: with hematuria Qualified Code(s): N39.0 - Urinary tract infection, site not specified ; R31.9 - Hematuria, unspecified Condition: Fair Critical Care Time: No Referrals: DEJON CURRIE [Primary Care Provider] - Additional Instructions: Return home. Plenty of fluids. Cipro 250 mg orally daily for 7 days. Follow-up with your family doctor. Return for acute distress or for severe symptoms. Prescriptions: Ciprofloxacin HCl [Cipro] 250 mg PO DAILY #7 tablet
[2018-01-30 10:21] LABS: Hematocrit 35.2 % (35-47); Hemoglobin 10.5 gm/dl (12.0-16.0); Mean Cell Volume 88.7 fl (78-100); Mean Corpuscular Hemoglobin 26.4 pg (26-32); Mean Corpuscular Hgb Concent. 29.8 g/dl (32-36); Mean Platelet Volume 11.2 fl (6-9.5); Platelet Count 82 K/mm3 (150-450); Red Blood Count 3.97 M/mm3 (4.1-5.4); Red Cell Distribution Width 22.7 % (11.5-14.0); White Blood Count 6.9 K/mm3 (4.0-10.5)
[2018-01-30 10:40] LABS: ALBUMIN 3.1 g/dL (3.5-5.0); BILIRUBIN,TOTAL 0.7 mg/dL (0.2-1.3); Calcium 7.8 mg/dL (8.4-10.2); Creatinine 1 3.21 mg/dL (0.52-1.04); Potassium 3.9 mmol/L (3.5-5.1); Total Protein 6.5 g/dL (6.3-8.2)
[2018-01-30 11:00] LABS: ATYPICAL LYMPHS 1 %; BAND 4 % (0.0-2.0); Lymphocytes 32 % (24-44); Monocyte 11 % (0.0-12.0); Neutrophils 52 % (36.0-66.0); Platelet Estimate DECREASED (NORMAL); Total Cells Counted 100
[2018-01-30 11:01] LABS: ANISOCYTOSIS 1+; Poikilocytosis 1+
[2018-01-30 11:09] LABS: INR 1.11 (0.8-3.0)
[2018-01-30 11:10] LABS: Appearance CLOUDY (CLEAR)
[2018-01-30 11:11] LABS: Bilirubin NEGATIVE (NEGATIVE); Blood 250 Ery/ul (0-5); Glucose NEGATIVE (NEGATIVE); Ketones TRACE (NEGATIVE); Leukocyte Esterase 2+ (NEGATIVE); Nitrite POSITIVE (NEGATIVE); Protein,Urine Dip 3+ (Negative); Urobilinogen NORMAL mg/dL (0-1)
[2018-01-30 11:13] LABS: Bacteria FEW /HPF (NEGATIVE); Epithelial Cells FEW /HPF (FEW); RBC >100 /HPF (0-2); WBC >100 /HPF (0-5)
[2018-01-30 12:46] VITALS: BP 119/52; PULSE 72; O2SAT 98
[2018-01-30 12:46] LABS: Granulocyte Absolute (ANC) 3.87 (1.4-6.9)
== END 2018-01-30 12:47 | disposition home or self-care (01) ==
LOC: ED 09:43
DX: N93.9 Abnormal uterine and vaginal bleeding, unspecified (principal); N39.0 Urinary tract infection, site not specified; Z79.899 Other long term (current) drug therapy
CPT/HCPCS: 36000; 36415; 80053; 81000; 85025; 85610; 87086; 99284; P9612; 87077; 87186; J1642